=== PATIENT | female | born 1985 | race Caucasian/White ===

== ENCOUNTER 2017-11-09 09:07 | Emergency (ER) | payer MEDICAID, SELFPAY ==
[2017-11-09 09:10] VITALS: BP 112/59; PULSE 75; RESP 18; TEMP 36.7; O2SAT 98
--- NOTE | 2017-11-09 09:26 | W.ED.GENAD ---
Discharge Plan Discharge Details Chief Complaint: RespSymp Primary Care Provider: NONE,NONE ED Provider: Eitan Ge Home Meds and New Rx's Prescriptions: No Action levonorgestrel [Mirena] 1 EACH intrauterine device 1 ea Intrauterine ONCE Qty: 1 RF: 0 fluoxetine [Prozac] 20 MG capsule 20 mg PO DAILY Qty: 30 RF: 0 Medical Decision Making MDM Narrative Medical decision making narrative: 33-year-old female smoker with cough, congestion, production of sputum. She is well-appearing, with normal oxygenation and respiratory effort. She does have few scattered rhonchi and wheeze on exam. Taught the use of albuterol inhaler in the emergency department. I will prescribe her a course of antibiotics for developing bronchitis. She has already initated plans to establish care with [facility] internal medicine and she will follow-up with them. HPI - General Adult General Mode of arrival: ambulatory. Date/Time Provider Initiated Documentation: 11/09/17 09:20. Limitations to Documentation: no limitations. Information obtained by: patient. History of Present Illness 32 year old F presents to the emergency department with the chief complaint of Cough, described as moderate, Quality is described as constant, and is localized to the chest. Patient reports no radiation. Patient started experiencing this day(s) and it has been constant. No relieving factors improve symptom(s), No exacerbating factors reported . Patient notes cough and fever/chills. Patient did receive the following treatments prior to arrival, none HPI Narrative: 32-year-old female smoker presents with days to 1 week of the gradual onset of cough, congestion, production of sputum with sinus pain and pressure. She has had chills but no fever. Tolerate liquids and solids by mouth. No other constitutional symptoms. No known sick contacts. Related Data Home Medications Medication Instructions Recorded Confirmed levonorgestrel [Mirena] 1 ea INTRAUTERINE ONCE #1 implant 06/14/17 11/09/17 Previous Rx's Medication Instructions Recorded fluoxetine [Prozac] 20 mg PO DAILY #30 tab 08/31/17 Allergies Allergy/AdvReac Type Severity Reaction Status Date / Time adhesive Allergy Mild Red, itchy Unverified 11/09/17 09:18 skin General Stated Complaint: RespSymp MIKAYLA: 3 Review of Systems Review of Systems 8 systems reviewed and otherwise negative All systems reviewed & are unremarkable except as noted in HPI and below PFSH Family History Grandmother No problems noted. Maternal Aunt No problems noted. Medical History Abnormal Pap smear of cervix Chlamydia trachomatis infection (02/09/05) Pelvic pain Social History Smoking/Tobacco Use Status: Current every day Surgical History Cervical Conization/LEEP Laparoscopic, Ovarian Cystectomy (~06/2017) Exam Narrative Exam Narrative: GEN: awake, alert, oriented 3. Pleasant, well groomed, interactive. HEAD: Normocephalic, atraumatic ENT: Mucous membranes moist, oropharynx unremarkable, External ear exam unremarkable EYES: PERRL, EOMI NECK: Full ROM, no GIULIANA, no menigismus CHEST/RESP: Nontender, clear to auscultation bilateral, few scattered rhonchi/wheeze - subtle CARDIOVASCULAR: RRR, no murmur, rub maikel. 2+ Rad pulse bilateral ABDOMEN: Soft, nontender, no mass. +Bowel sounds EXT: Full ROM, no edema, no rash Neuro: Grossly normal neurologic exam, conversant, interactive. Psych: Speech fluent, thoughts congruent, affect normal Course Vital Signs Temperature 36.7 C 11/09/17 09:10 Pulse 75 11/09/17 09:10 Respiratory Rate 11/09/17 09:10 Blood Pressure 112/59 L 11/09/17 09:10 Pulse Oximetry 98 11/09/17 09:10 Temperature 36.7 C 11/09/17 09:10 Pulse 75 11/09/17 09:10 Respiratory Rate 11/09/17 09:10 Blood Pressure 112/59 L 11/09/17 09:10 Pulse Oximetry 98 11/09/17 09:10
--- NOTE | 2017-11-09 09:29 | ED.GENADUL_ITS ---
Discharge Plan Discharge Details Chief Complaint: RespSymp Primary Care Provider: NONE,NONE ED Provider: Eitan Ge Home Meds and New Rx's Prescriptions: No Action levonorgestrel [Mirena] 1 EACH intrauterine device 1 ea Intrauterine ONCE Qty: 1 RF: 0 fluoxetine [Prozac] 20 MG capsule 20 mg PO DAILY Qty: 30 RF: 0 Medical Decision Making MDM Narrative Medical decision making narrative: 33-year-old female smoker with cough, congestion, production of sputum. She is well-appearing, with normal oxygenation and respiratory effort. She does have few scattered rhonchi and wheeze on exam. Taught the use of albuterol inhaler in the emergency department. I will prescribe her a course of antibiotics for developing bronchitis. She has already initated plans to establish care with [facility] internal medicine and she will follow-up with them. HPI - General Adult General Mode of arrival: ambulatory . Date/Time Provider Initiated Documentation: 11/09/17 09:20 . Limitations to Documentation: no limitations . Information obtained by: patient . History of Present Illness 32 year old F presents to the emergency department with the chief complaint of Cough, described as moderate, Quality is described as constant, and is localized to the chest. Patient reports no radiation. Patient started experiencing this day(s) and it has been constant. No relieving factors improve symptom(s), No exacerbating factors reported . Patient notes cough and fever/chills. Patient did receive the following treatments prior to arrival, none HPI Narrative: 32-year-old female smoker presents with days to 1 week of the gradual onset of cough, congestion, production of sputum with sinus pain and pressure. She has had chills but no fever. Tolerate liquids and solids by mouth. No other constitutional symptoms. No known sick contacts. Related Data Home Medications Medication Instructions Recorded Confirmed levonorgestrel [Mirena] 1 ea INTRAUTERINE ONCE #1 implant 06/14/17 11/09/17 Previous Rx's Medication Instructions Recorded fluoxetine [Prozac] 20 mg PO DAILY #30 tab 08/31/17 Allergies Allergy/AdvReac Type Severity Reaction Status Date / Time adhesive Allergy Mild Red, itchy Unverified 11/09/17 09:18 skin General Stated Complaint: RespSymp MIKAYLA: 3 Review of Systems Review of Systems 8 systems reviewed and otherwise negative All systems reviewed & are unremarkable except as noted in HPI and below PFSH Family History Grandmother No problems noted. Maternal Aunt No problems noted. Medical History Abnormal Pap smear of cervix Chlamydia trachomatis infection (02/09/05) Pelvic pain Social History Smoking/Tobacco Use Status: Current every day Surgical History Cervical Conization/LEEP Laparoscopic, Ovarian Cystectomy (~06/2017) Exam Narrative Exam Narrative: GEN: awake, alert, oriented 3. Pleasant, well groomed, interactive. HEAD: Normocephalic, atraumatic ENT: Mucous membranes moist, oropharynx unremarkable, External ear exam unremarkable EYES: PERRL, EOMI NECK: Full ROM, no GIULIANA, no menigismus CHEST/RESP: Nontender, clear to auscultation bilateral, few scattered rhonchi/ wheeze - subtle CARDIOVASCULAR: RRR, no murmur, rub maikel. 2+ Rad pulse bilateral ABDOMEN: Soft, nontender, no mass. +Bowel sounds EXT: Full ROM, no edema, no rash Neuro: Grossly normal neurologic exam, conversant, interactive. Psych: Speech fluent, thoughts congruent, affect normal Course Vital Signs Temperature 36.7 C 11/09/17 09:10 Pulse 75 11/09/17 09:10 Respiratory Rate 11/09/17 09:10 Blood Pressure 112/59 L 11/09/17 09:10 Pulse Oximetry 98 11/09/17 09:10 Temperature 36.7 C 11/09/17 09:10 Pulse 75 11/09/17 09:10 Respiratory Rate 11/09/17 09:10 Blood Pressure 112/59 L 11/09/17 09:10 Pulse Oximetry 98 11/09/17 09:10
[2017-11-09] MEDS: Inhaler, Assist Device 1 EACH MC (09:36)
[2017-11-09] MEDS: Albuterol HFA 8 GM 60 PUFF INH IH (09:36)
--- NOTE | 2017-11-12 09:51 | CMPROGNOTE_ITS ---
Care Management Progress Note 11/12/17-Pt seen for resp. symptoms on 11/09/[address] Arturo Ge . Referral faxed to establish PCP sent to [facility] as Chris Faye was network operations lead.
== END 2017-11-09 09:40 | disposition home or self-care (01) ==
LOC: ER 10:24
PROVIDERS: Emergency Provider Emergency Medicine
DX: J06.9 Acute upper respiratory infection, unspecified (principal); F17.210 Nicotine dependence, cigarettes, uncomplicated
CPT/HCPCS: 99283

== ENCOUNTER 2017-12-18 18:52 | Emergency (ER) | payer MEDICAID, SELFPAY ==
[2017-12-18 19:02] VITALS: BP 117/66; PULSE 73; RESP 22; TEMP 36.7; O2SAT 98
--- NOTE | 2017-12-18 19:31 | DI.RAD_ITS ---
SYMPTOMS/DIAGNOSIS: COUGH PA AND LATERAL CHEST: Comparison is made with October,. The cardiac and mediastinal contours have a normal appearance. The lungs are well inflated and clear. No infiltrate, effusion or pneumothorax is seen. IMPRESSION: Negative chest x-ray.
--- NOTE | 2017-12-18 19:49 | W.ED.GENAD ---
Discharge Plan Disposition Patient Disposition: HOME Condition: Improving Discharge Details Chief Complaint: RespSymp Clinical Impression: Bronchitis Primary Care Provider: NONE,NONE ED Provider: Cain Costello Home Meds and New Rx's Prescriptions: New benzonatate 200 mg capsule 200 mg PO TID PRN (Reason: cough) Qty: 30 RF: 0 prednisone 20 mg tablet 40 mg PO DAILY Qty: 8 RF: 0 No Action levonorgestrel [Mirena] 1 EACH intrauterine device 1 ea Intrauterine ONCE Qty: 1 RF: 0 fluoxetine [Prozac] 20 MG capsule 20 mg PO DAILY Qty: 30 RF: 0 Discharge Instructions Instructions: Acute Bronchitis (ED) Additional Instructions: Feel free to return to the emergency department for new or significant worsening of symptoms otherwise follow-up with primary care doctor in the next 1-2 weeks for reassessment Referrals: Primary Care Provider [Outside] (Care management should help arrange a follow-up visit in 1 week for reassessment and establishment of primary care provider) Discharge Data Discharge Date/Time-TO BE ENTERED AT DEPARTURE: 12/18/17 22:51 Medical Decision Making Patient presents the emergency department chief complaint of cough. Patient states that cough has been persistent for the last month and she was seen a month ago and placed upon doxycycline for her cough that never improved. Physical exam does show some mild right lower lobe rhonchi otherwise no specific other physical exam findings are noted. Concern for recurrence of pneumonia versus bronchitis so plan to perform radiological imaging the chest. Pending results patient given DuoNeb. Review of radiological imaging shows no acute findings. Patient reassessed after DuoNeb and lungs are clear especially with coughing. I suspect given duration of symptoms and the patient is a smoker that she has bronchitis. Given the patient is afebrile with unremarkable vital signs and continued cough with negative chest x-ray I do not feel that patient needs antibiotics also given that patient was recently on doxycycline and no benefit. I suspect more viral or inflammatory etiology and patient agreed to Danilo Archer for cough suppressant and prednisone burst. Patient was encouraged to return for any new or significant worsening of symptoms otherwise to follow-up with her primary care provider if continuing to not improve over the next 5 days HPI General Mode of arrival: ambulatory. Date/Time Provider Initiated Documentation: 12/18/17 19:31. Limitations to Documentation: no limitations. Information obtained by: patient, RN notes reviewed and old records reviewed. History of Present Illness 32 year old F presents to the emergency department with the chief complaint of Cough/chest pain , described as moderate, with intensity rated at 5. Quality is described as aching, and is localized to the chest and right. Patient started experiencing this month(s) (1) and it has been constant. No relieving factors improve symptom(s), Other factors that worsen symptoms (coughinh) . Related Data Home Medications Medication Instructions Recorded Confirmed levonorgestrel [Mirena] 1 ea INTRAUTERINE ONCE #1 implant 06/14/17 12/18/17 fluoxetine [Prozac] 20 mg PO DAILY #30 tab 08/31/17 12/18/17 benzonatate 200 mg PO TID PRN #30 cap 12/18/17 prednisone 40 mg PO DAILY #8 tab 12/18/17 Previous Rx's Medication Instructions Recorded fluoxetine [Prozac] 20 mg PO DAILY #30 tab 08/31/17 benzonatate 200 mg PO TID PRN #30 cap 12/18/17 prednisone 40 mg PO DAILY #8 tab 12/18/17 Allergies Allergy/AdvReac Type Severity Reaction Status Date / Time adhesive Allergy Mild Red, itchy Unverified 12/18/17 19:06 skin General Stated Complaint: RespSymp MIKAYLA: 4 Review of Systems Constitutional Denies chills, Reports difficulty sleeping (Due to coughing), Reports fatigue, Denies fever(s) and Reports malaise ENT Denies hoarseness, Reports nasal congestion, Denies sinus pressure and Denies sore throat Cardiovascular Denies syncope, Denies rapid heart rate, Denies irregular heart rhythm and Denies dyspnea Respiratory Reports cough, Denies hemoptysis, Denies excessive phlegm production, Reports pain with cough, Denies dyspnea and Denies wheezing Musculoskeletal Denies joint swelling Integumentary/Breasts Denies rash Neurologic Denies syncope Endocrine Reports fatigue Allergic/Immunologic Denies wheezing PFSH Family History Grandmother No problems noted. Maternal Aunt No problems noted. Medical History Abnormal Pap smear of cervix Chlamydia trachomatis infection (02/09/05) Pelvic pain Social History Smoking/Tobacco Use Status: Current every day Surgical History Cervical Conization/LEEP Laparoscopic, Ovarian Cystectomy (~06/2017) Exam Const General: cooperative, comfortable and no acute distress Orientation: alert, awake and oriented x3 Neck Neck: normal visual inspection, full ROM, no lymphadenopathy, meningismus present and no JVD Resp Effort & Inspection: normal respiratory effort, able to speak in complete sentences, no audible wheezes, cough Quality of cough: actively coughing and not labored Auscultation: rhonchi right lower Cardio Rate: regular rate Rhythm: regular rhythm Heart Sounds: S1 normal and S2 normal Skin General skin exam: no rashes or lesions noted and dry skin Rashes: no rashes Neuro General: alert, awake, oriented x3 and gait normal Course Vital Signs Temperature 36.7 C 12/18/17 19:02 Pulse 73 12/18/17 19:02 Respiratory Rate 22 12/18/17 19:02 Blood Pressure 117/66 12/18/17 19:02 Pulse Oximetry 98 12/18/17 19:02 Temperature 36.7 C 12/18/17 19:02 Temperature Source Skin 12/18/17 19:02 Pulse 73 12/18/17 19:02 Respiratory Rate 22 12/18/17 19:02 Respiratory Effort 12/18/17 19:14 Blood Pressure 117/66 12/18/17 19:02 Blood Pressure Position Sitting 12/18/17 19:02 Pulse Oximetry 98 12/18/17 19:02 Oxygen Delivery Method Room Air 12/18/17 19:02 Oxygen Flow Rate 0 12/18/17 19:02 Pain Level 5 12/18/17 19:02 Lab/Test Results Lab/Test Results: POC- Test(urine) Negative
[2017-12-18] MEDS: Albuterol/Ipratropium 3 ML UPD VIAL UPD (19:55)
--- NOTE | 2017-12-18 21:44 | DI.VRAD_ITS ---
EXAM: XR Chest, 2 Views EXAM DATE/TIME: 12/18/2017 7:32 PM CLINICAL HISTORY: 32 years old, female; Signs and symptoms; Other: Cough TECHNIQUE: XR of the chest, 2 views. COMPARISON: CR CHEST 2 VIEWS PA,LAT 11/22/2015 9:17 AM FINDINGS: Lungs: Clear lungs. Pleural space: No pneumothorax. No sizable pleural effusion. Heart/Mediastinum: No cardiomegaly. Bones/joints: Unremarkable. IMPRESSION: Clear lungs. Dictated and Authenticated by: Mushtaq Martinez MD. Ordering:THERESE TRIVEDI MD
[2017-12-18] MEDS: Benzonatate 100 MG CAP 400 MG PO (22:35)
[2017-12-18] MEDS: Albuterol HFA 8 GM 60 PUFF INH IH (22:35)
[2017-12-18] MEDS: predniSONE 20 MG TAB 60 MG PO (22:35)
--- NOTE | 2017-12-18 22:43 | ED.GENADUL_ITS ---
Discharge Plan Disposition Patient Disposition: HOME Condition: Improving Discharge Details Chief Complaint: RespSymp Clinical Impression: Bronchitis Primary Care Provider: NONE,NONE ED Provider: Cain Costello Home Meds and New Rx's Prescriptions: New benzonatate 200 mg capsule 200 mg PO TID PRN (Reason: cough) Qty: 30 RF: 0 prednisone 20 mg tablet 40 mg PO DAILY Qty: 8 RF: 0 No Action levonorgestrel [Mirena] 1 EACH intrauterine device 1 ea Intrauterine ONCE Qty: 1 RF: 0 fluoxetine [Prozac] 20 MG capsule 20 mg PO DAILY Qty: 30 RF: 0 Discharge Instructions Instructions: Acute Bronchitis (ED) Additional Instructions: Feel free to return to the emergency department for new or significant worsening of symptoms otherwise follow-up with primary care doctor in the next 1 -2 weeks for reassessment Referrals: Primary Care Provider [Outside] (Care management should help arrange a follow- up visit in 1 week for reassessment and establishment of primary care provider) Discharge Data Discharge Date/Time-TO BE ENTERED AT DEPARTURE: 12/18/17 22:51 Medical Decision Making Patient presents the emergency department chief complaint of cough. Patient states that cough has been persistent for the last month and she was seen a month ago and placed upon doxycycline for her cough that never improved. Physical exam does show some mild right lower lobe rhonchi otherwise no specific other physical exam findings are noted. Concern for recurrence of pneumonia versus bronchitis so plan to perform radiological imaging the chest. Pending results patient given DuoNeb. Review of radiological imaging shows no acute findings. Patient reassessed after DuoNeb and lungs are clear especially with coughing. I suspect given duration of symptoms and the patient is a smoker that she has bronchitis. Given the patient is afebrile with unremarkable vital signs and continued cough with negative chest x-ray I do not feel that patient needs antibiotics also given that patient was recently on doxycycline and no benefit. I suspect more viral or inflammatory etiology and patient agreed to Danilo Archer for cough suppressant and prednisone burst. Patient was encouraged to return for any new or significant worsening of symptoms otherwise to follow-up with her primary care provider if continuing to not improve over the next 5 days HPI General Mode of arrival: ambulatory . Date/Time Provider Initiated Documentation: 12/18/17 19:31 . Limitations to Documentation: no limitations . Information obtained by: patient, RN notes reviewed and old records reviewed . History of Present Illness 32 year old F presents to the emergency department with the chief complaint of Cough/chest pain , described as moderate, with intensity rated at 5. Quality is described as aching, and is localized to the chest and right. Patient started experiencing this month(s) (1) and it has been constant. No relieving factors improve symptom(s), Other factors that worsen symptoms ( coughinh) . Related Data Home Medications Medication Instructions Recorded Confirmed levonorgestrel [Mirena] 1 ea INTRAUTERINE ONCE #1 implant 06/14/17 12/18/17 fluoxetine [Prozac] 20 mg PO DAILY #30 tab 08/31/17 12/18/17 benzonatate 200 mg PO TID PRN #30 cap 12/18/17 prednisone 40 mg PO DAILY #8 tab 12/18/17 Previous Rx's Medication Instructions Recorded fluoxetine [Prozac] 20 mg PO DAILY #30 tab 08/31/17 benzonatate 200 mg PO TID PRN #30 cap 12/18/17 prednisone 40 mg PO DAILY #8 tab 12/18/17 Allergies Allergy/AdvReac Type Severity Reaction Status Date / Time adhesive Allergy Mild Red, itchy Unverified 12/18/17 19:06 skin General Stated Complaint: RespSymp MIKAYLA: 4 Review of Systems Constitutional Denies chills, Reports difficulty sleeping (Due to coughing), Reports fatigue, Denies fever(s) and Reports malaise ENT Denies hoarseness, Reports nasal congestion, Denies sinus pressure and Denies sore throat Cardiovascular Denies syncope, Denies rapid heart rate, Denies irregular heart rhythm and Denies dyspnea Respiratory Reports cough, Denies hemoptysis, Denies excessive phlegm production, Reports pain with cough, Denies dyspnea and Denies wheezing Musculoskeletal Denies joint swelling Integumentary/Breasts Denies rash Neurologic Denies syncope Endocrine Reports fatigue Allergic/Immunologic Denies wheezing PFSH Family History Grandmother No problems noted. Maternal Aunt No problems noted. Medical History Abnormal Pap smear of cervix Chlamydia trachomatis infection (02/09/05) Pelvic pain Social History Smoking/Tobacco Use Status: Current every day Surgical History Cervical Conization/LEEP Laparoscopic, Ovarian Cystectomy (~06/2017) Exam Const General: cooperative, comfortable and no acute distress Orientation: alert, awake and oriented x3 Neck Neck: normal visual inspection, full ROM, no lymphadenopathy, meningismus present and no JVD Resp Effort & Inspection: normal respiratory effort, able to speak in complete sentences, no audible wheezes, cough Quality of cough: actively coughing and not labored Auscultation: rhonchi right lower Cardio Rate: regular rate Rhythm: regular rhythm Heart Sounds: S1 normal and S2 normal Skin General skin exam: no rashes or lesions noted and dry skin Rashes: no rashes Neuro General: alert, awake, oriented x3 and gait normal Course Vital Signs Temperature 36.7 C 12/18/17 19:02 Pulse 73 12/18/17 19:02 Respiratory Rate 22 12/18/17 19:02 Blood Pressure 117/66 12/18/17 19:02 Pulse Oximetry 98 12/18/17 19:02 Temperature 36.7 C 12/18/17 19:02 Temperature Source Skin 12/18/17 19:02 Pulse 73 12/18/17 19:02 Respiratory Rate 22 12/18/17 19:02 Respiratory Effort 12/18/17 19:14 Blood Pressure 117/66 12/18/17 19:02 Blood Pressure Position Sitting 12/18/17 19:02 Pulse Oximetry 98 12/18/17 19:02 Oxygen Delivery Method Room Air 12/18/17 19:02 Oxygen Flow Rate 0 12/18/17 19:02 Pain Level 5 12/18/17 19:02 Lab/Test Results Lab/Test Results: POC- Test(urine) Negative
--- NOTE | 2017-12-19 07:30 | PDOC.ERCMPRO ---
Care Management Progress Note 12/18-LOUANN López requested assistance with a PCP (Patient does not have a PCP, Karlene Faye educational consultant) in one week for bronchitis on steroids. Referral faxed to [facility] this am.
--- NOTE | 2017-12-19 07:32 | CMPROGNOTE_ITS ---
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 Referral faxed to [facility] this am.
== END 2017-12-18 22:51 | disposition home or self-care (01) ==
PROVIDERS: Emergency Provider Nurse Practitioner Family
DX: J20.9 Acute bronchitis, unspecified (principal); F17.210 Nicotine dependence, cigarettes, uncomplicated
CPT/HCPCS: 81025; 94640; 99283; 71046; J7512; J7620

== ENCOUNTER 2018-02-28 02:49 | Outpatient (CLI) | payer MEDICAID, SELFPAY ==
--- NOTE | 2018-02-28 | PFT_ITS ---
PULMONARY FUNCTION TEST REPORT DATE OF DICTATION March 04, 2018 Patient identification - Belia Rubio DATE OF - 1985 DATE OF SERVICE - February 28, 2018 REQUESTING PROVIDER - Beckie Elkins N.P. INTERPRETATION OF STUDY Spirometry shows borderline mild obstructive airways disease, with no significant bronchodilator response. This may represent a normal variant. LUNG VOLUMES - Lung volumes no evidence of restriction. DIFFUSION CAPACITY- Normal. AIRWAY RESISTANCE - Normal. IMPRESSION Borderline mild obstructive airways disease, with no bronchodilator response. This may represent a normal variant. If underlying asthma diagnosis is in question, proceeding with methacholine challenge testing may prove to be useful, therefore clinical correlation recommended. Pepper Ruiz M.D. HANNAH/lucrecia T - 03/04/2018
[2018-02-28] MEDS: Inhaler, Assist Device 1 EACH MC (13:53)
[2018-02-28] MEDS: Albuterol HFA 18 GM 200 PUFF INH IH (13:54)
== END 2018-02-28 03:09 ==
PROVIDERS: PCP Nurse Practitioner; Visit Provider Nurse Practitioner
DX: R05 Cough (principal)
CPT/HCPCS: 94060; 94150; 94726; 94729

== ENCOUNTER 2018-04-03 14:03 | Outpatient (CLI) | payer MEDICAID, SELFPAY ==
--- NOTE | 2018-04-03 15:47 | DI.RAD_ITS ---
SYMPTOMS/DIAGNOSIS: COUGH, R05, ACID REFLUX, K21.9 PA AND LATERAL CHEST: The cardiac and mediastinal contours have a normal appearance. The lungs are well inflated and clear. No infiltrate, effusion or pneumothorax is seen. IMPRESSION: Negative chest x-ray.
== END 2018-04-03 14:23 ==
PROVIDERS: PCP Nurse Practitioner; Visit Provider Nurse Practitioner
DX: R05 Cough (principal); K21.9 Gastro-esophageal reflux disease without esophagitis
CPT/HCPCS: 71046

== ENCOUNTER 2018-04-09 14:30 | Outpatient (CLI) | payer MEDICAID, SELFPAY ==
[2018-04-09 17:05] LABS: Abs Immature Grans 0.01 k/cumm (0.0-0.09); Absolute Basophil Count 0.02 k/cumm (0.0-0.2); Absolute Lymphocyte Count 2.08 k/cumm (1.2-3.4); Absolute Monocyte Count 0.33 k/cumm (0.11-0.7); Absolute Neutrophil Count 3.77 k/cumm (1.2-6.7); Basophils % 0.3; Eosinophils % 1.6; HCT 37.6 % (36.0-46.0); HGB 12.9 g/dL (12.0-15.5); Immature Grans % 0.2; Mean Corp. HGB Concentration 34.3 g/dL (32.0-36.0); Mean Corpuscular Hemoglobin 33.5 pg (27.0-33.0); Mean Corpuscular Volume 97.7 fL (80-95); Mean Platelet Volume 11.5 fL (8.0-11.0); Monocytes % 5.2; Neutrophils % 59.7; Platelet Count 127 x1000/uL (130-400); RBC 3.85 m/cumm (4.00-5.20); RBC Distribution Width 12.8 % (11.7-14.6); White Blood Cell Count 6.31 k/cumm (4.4-10.8)
[2018-04-09 18:48] LABS: Iron 77 ug/dL (50-175); Total Iron Binding Capacity 248 ug/dL (250-450); Transferrin Sat 31 % (15-50)
[2018-04-09 19:03] LABS: Ferritin 78 ng/mL (8-388); Glucose 95 mg/dL (70-100); TSH (W/Ref FT4) 1.87 uIU/mL (0.358-3.74)
== END 2018-04-09 14:50 ==
PROVIDERS: PCP Nurse Practitioner; Visit Provider Nurse Practitioner
DX: F41.8 Other specified anxiety disorders (principal); Z86.2 Personal history of diseases of the blood and blood-forming organs and certain disorders involving the immune mechanism; Z00.00 Encounter for general adult medical examination without abnormal findings
CPT/HCPCS: 36415; 82947; 82728; 83540; 83550; 84443; 85025

== ENCOUNTER 2018-04-26 12:21 | Outpatient (REF) | payer MEDICAID, SELFPAY ==
[2018-04-26 13:49] LABS: HCT 38.5 % (36.0-46.0); Mean Corp. HGB Concentration 33.8 g/dL (32.0-36.0); Mean Corpuscular Hemoglobin 33.1 pg (27.0-33.0); Mean Platelet Volume 11.9 fL (8.0-11.0); Platelet Count 115 x1000/uL (130-400); RBC 3.93 m/cumm (4.00-5.20); RBC Distribution Width 12.8 % (11.7-14.6); White Blood Cell Count 5.94 k/cumm (4.4-10.8)
== END 2018-04-26 12:41 ==
LOC: NCHCN 12:21
PROVIDERS: PCP Nurse Practitioner; Visit Provider Nurse Practitioner
DX: D72.819 Decreased white blood cell count, unspecified (principal)
CPT/HCPCS: 85027

== ENCOUNTER 2018-05-06 13:37 | Outpatient (REF) | payer MEDICAID, SELFPAY ==
[2018-05-06 21:30] LABS: Platelet Count 127 x1000/uL (130-400)
[2018-05-06 21:53] LABS: ALT 23 U/L (12-78); AST 18 U/L (15-37); Albumin 4.1 g/dL (3.4-5.0); Alkaline Phosphatase 67 U/L (46-116); Bilirubin, Direct 0.08 mg/dL (0.00-0.20); Bilirubin, Total 0.3 mg/dL (0.2-1.0)
[2018-05-08 10:01] LABS: HIV-1/2 Ag & Ab Screen Negative (NEGAT)
[2018-05-08 10:12] LABS: Hepatitis C Ab w Rflx HCV PCR Negative (NEGAT)
== END 2018-05-06 13:57 ==
LOC: NCHCN 13:37
PROVIDERS: PCP Nurse Practitioner; Visit Provider Nurse Practitioner
DX: R79.1 Abnormal coagulation profile (principal); Z11.59 Encounter for screening for other viral diseases; Z11.4 Encounter for screening for human immunodeficiency virus [HIV]
CPT/HCPCS: 80076; 86803; 87389; 85049

== ENCOUNTER 2018-06-10 00:48 | Outpatient (CLI) | payer MEDICAID, SELFPAY ==
--- NOTE | 2018-06-10 11:11 | DI.US_ITS ---
SYMPTOM/DIAGNOSIS: ASSESS SPLEEN AND LIVER, THROMBOCYTOPENIA, D69.6 ABDOMEN ULTRASOUND: The visualized liver, parenchyma is normal in appearance. No evidence of biliary dilatation. There is normodirectional portal flow. There is no evidence of cholelithiasis. Pancreas appears intact as visualized. Spleen is normal in size and echogenicity. Kidneys are unremarkable in appearance. Aorta and IVC are of normal diameter. CONCLUSION: Negative abdominal ultrasound.
== END 2018-06-10 01:08 ==
PROVIDERS: PCP Nurse Practitioner; Visit Provider Internal Medicine Hematology & Oncology
DX: D69.6 Thrombocytopenia, unspecified (principal)
CPT/HCPCS: 76700

== ENCOUNTER 2018-07-20 10:12 | Emergency (ER) | payer MEDICAID, SELFPAY ==
[2018-07-20 10:15] VITALS: BP 133/91; PULSE 72; RESP 16; TEMP 36.4; O2SAT 100
[2018-07-20] MEDS: Bupivacaine 0.5% Pres-Free 30 ML VIAL (10:28)
--- NOTE | 2018-07-20 10:29 | ED.GENADUL_ITS ---
Discharge Plan Disposition Patient Disposition: HOME Condition: Good Discharge Details Chief Complaint: DentalOral Clinical Impression: Pain, dental, TMJ (temporomandibular joint syndrome) Primary Care Provider: Beckie Elkins ED Provider: Chava Albarran Home Meds and New Rx's Prescriptions: New amoxicillin 500 mg capsule 500 mg PO QID 7 Days Qty: 28 RF: 0 No Action Mirena 1 EACH intrauterine device 1 ea Intrauterine ONCE Qty: 1 RF: 0 fluoxetine [Prozac] 20 MG capsule 20 mg PO DAILY Qty: 30 RF: 0 omeprazole 20 mg Capsule,Delayed Release(Dr/Ec) 20 mg PO DAILY RF: 0 Discharge Instructions Instructions: Temporomandibular Disorder (ED), Toothache (ED) Additional Instructions: It appears that you have a combination of a mild dental infection in conjunction with temporomandibular joint pain. Please take the amoxicillin antibiotic as directed. Please take 1000 mg of Tylenol every 6 hours as a maximum dose and 800 mg of ibuprofen every 6 hours as the maximum dose. Please perform the stretches that we discussed. Please apply ice to her right jaw as often as possible. Please follow-up with your dentist as soon as possible for reassessment. If you notice any worsening of your symptoms, or any new symptoms such as vomiting, diarrhea, fever, chills, shortness of breath, chest pain, numbness, weakness, or fainting , please return immediately to the emergency department for reevaluation. Please follow up with your primary care provider as soon as possible for reassessment and reevaluation. As always, it was a pleasure participating in your medical care today. Referrals: Beckie Elkins [Primary Care Provider] - Medical Decision Making This is a pleasant 33-year-old female with no significant past medical history who presents today for evaluation of right dental pain for the last 3 weeks that has gradually been worsening. No red flags of fever or chills. Exam demonstrates mild dental caries throughout. No clinical evidence of meningitis, temporal arteritis, periapical abscess, or neck or throat abscess. Posterior oropharynx is nonerythematous and otherwise benign. Signs and symptoms appear consistent with mild pulpitis from dental caries, in conjunction with mild TMJ. We will give first dose of antibiotics here, and recommend close dental follow- up. We have given a block here in the patient has had notable improvement of h er symptoms. I have extensively reviewed the treatment plan and discharge instructions with the patient and their family. I have addressed all patient concerns at this time. The patient and family was made aware of what symptoms to monitor for that would warrant a return to the emergency department. Discussed the plan with the patient and family, they demonstrate verbal understanding and agreement with our assessment and plan at this time. Time out was taken to identify the correct patient, procedure, and site. Risks and benefits were discussed with the patient and consent was obtained. Direct pressure was held over the area prior to the procedure to reduce painful injection. 5 cc?s of Lidocaine 1% and Bupivacaine 0.25% was instilled into the right inferior posterior alveolar region with a 27 gauge needle.Complete analgesia was obtained. The patient tolerated the procedure. There were no complications. HPI General Date/Time Provider Initiated Documentation: 07/20/18 10:12 . HPI Narrative: This is a 32-year-old female with no significant past medical history who presents today for evaluation of right dental pain. Patient states that for the last 3 weeks she has pain that started in her right lower molars, she has known dental caries. Is gradually worsened and now includes the right TMJ. Symptoms are made worse with chewing, palpation. Only minimally improved with NSAIDs. She has not seen a dentist yet. She denies any neck pain or stiffness, fever, chills, headache, chest pain, shortness of breath, arm neck or shoulder pain, chest tightness or chest heaviness. No history of giant cell arteritis, cardiac disease, or other abnormalities. She denies any swelling or discharge. She does smoke, she denies any IV or illicit drug use, or any recent surgical history. Related Data Home Medications Medication Instructions Recorded Confirmed Mirena 1 ea INTRAUTERINE ONCE #1 implant 06/14/17 07/20/18 fluoxetine [Prozac] 20 mg PO DAILY #30 tab 08/31/17 07/20/18 amoxicillin 500 mg PO QID 7 Days #28 cap 07/20/18 omeprazole 20 mg PO DAILY 07/20/18 07/20/18 Previous Rx's Medication Instructions Recorded fluoxetine [Prozac] 20 mg PO DAILY #30 tab 08/31/17 amoxicillin 500 mg PO QID 7 Days #28 cap 07/20/18 Allergies Allergy/AdvReac Type Severity Reaction Status Date / Time adhesive Allergy Mild Red, itchy Unverified 12/18/17 19:06 skin General Stated Complaint: DentalOral MIKAYLA: 4 Review of Systems Review of Systems All systems reviewed & are unremarkable except as noted in HPI and below PFSH Social History Smoking/Tobacco Use Status: Current every day Drug use: Never Do you feel safe in your relationship?: Yes Exam Narrative Exam Narrative: 1.Const: Well-nourished, Well-developed, appearing stated age 2.Eyes: PERRL, no conjunctival injection, and symmetrical lids. 3.ENT: Mild dental caries throughout, no periapical abscess. Atraumatic external nose and ears. Moist MM. Neck: Symmetric, trachea midline, No thyromegaly. No significant cervical lymphadenopathy. Patient demonstrates good movement of cervical neck. There is no nuchal rigidity, no nuchal tenderness. Patient is able to flex the neck without any difficulty or significant pain. Negative Kernig's and Brudzinski sign. No pain or tenderness over the temporal region. Mild with movement of the right TMJ. No crepitus. No significant unilateral deformity 4.CVS: +S1/S2, No murmurs or gallops. Peripheral pulses 2+ and equal in all extremities. Brisk capillary refill in all extremities. 5.RESP: Unlabored respiratory effort. Clear to auscultation bilaterally. No wheezes rales or rhonchi 6.GI: Soft, Nontender/Nondistended, No hepatosplenomegaly. No guarding or rebound. 7.MSK: Normocephalic/Atraumatic, Extremities w/o deformity or ttp No cyanosis or clubbing, Normal movement of all extremities 8.Skin: Warm, Dry. No rashes or lesions. 9.Neuro: knitting machine tender II-XII grossly intact. Sensation grossly intact, no focal neurologic deficits. 10.Psych: (AAO) x3. Appropriate mood and affect Course Vital Signs Temperature 36.4 C L 07/20/18 10:15 Pulse 72 07/20/18 10:15 Respiratory Rate 16 07/20/18 10:15 Blood Pressure 133/91 H 07/20/18 10:15 Pulse Oximetry 100 07/20/18 10:15 Temperature 36.4 C L 07/20/18 10:15 Temperature Source Skin 07/20/18 10:15 Pulse 72 07/20/18 10:15 Respiratory Rate 16 07/20/18 10:15 Respiratory Effort Non-Labored 07/20/18 10:20 Blood Pressure 133/91 H 07/20/18 10:15 Pulse Oximetry 100 07/20/18 10:15 Pain Level 10 07/20/18 10:15
[2018-07-20] MEDS: Amoxicillin 500 MG CAP PO (10:33)
== END 2018-07-20 10:36 | disposition home or self-care (01) ==
PROVIDERS: Emergency Provider Student in an Organized Health Care Education/Training Program; PCP Nurse Practitioner
DX: R68.84 Jaw pain (principal); K04.7 Periapical abscess without sinus; M26.621 Arthralgia of right temporomandibular joint
CPT/HCPCS: 64402; 99283

== ENCOUNTER 2018-11-12 11:23 | Outpatient (REF) | payer MEDICAID, SELFPAY ==
[2018-11-12 21:04] LABS: HCT 37.6 % (36.0-46.0); HGB 12.4 g/dL (12.0-15.5); Mean Corpuscular Hemoglobin 32.6 pg (27.0-33.0); Mean Corpuscular Volume 98.9 fL (80-95); Mean Platelet Volume 11.5 fL (8.0-11.0); Platelet Count 137 x1000/uL (130-400); RBC Distribution Width 12.8 % (11.7-14.6); White Blood Cell Count 5.57 k/cumm (4.4-10.8)
== END 2018-11-12 11:43 ==
LOC: NCHCN 11:23
PROVIDERS: PCP Nurse Practitioner; Visit Provider Nurse Practitioner Family
DX: R79.1 Abnormal coagulation profile (principal)
CPT/HCPCS: 85027

== ENCOUNTER 2018-11-27 09:20 | Emergency (ER) | payer MEDICAID, SELFPAY ==
[2018-11-27 09:23] VITALS: BP 136/55; PULSE 71; RESP 18; TEMP 36.5; O2SAT 98
--- NOTE | 2018-11-27 10:04 | ED.GENADUL_ITS ---
Discharge Plan Disposition Patient Disposition: HOME Condition: Good Discharge Details Chief Complaint: DentalOral Clinical Impression: Pain, dental Primary Care Provider: Ros Monreal ED Provider: Claire Wilder Home Meds and New Rx's Prescriptions: New clindamycin HCl 300 mg capsule 300 mg PO TID Qty: 30 RF: 0 No Action Mirena 1 EACH intrauterine device 1 ea Intrauterine ONCE Qty: 1 RF: 0 fluoxetine [Prozac] 20 MG capsule 20 mg PO DAILY Qty: 30 RF: 0 omeprazole 20 mg Capsule,Delayed Release(Dr/Ec) 20 mg PO DAILY RF: 0 Discharge Instructions Instructions: Toothache (ED) Additional Instructions: Ice packs to the cheek as discussed. Keep head of bed elevated when sleeping. Warm salt water rinses after eating or drinking. Use antibiotic as prescribed. Motrin or Tylenol as discussed for soreness [id number] if needed. Follow with dentist as scheduled. You will receive approximately 6 hours of relief after dental block for pain. Use caution when eating as her jaw and tongue will be partially numb Return to the emergency room for any worsening, concerns, alarming symptoms or increased sign of infection as discussed sooner if needed Discharge Data Discharge Date/Time-TO BE ENTERED AT DEPARTURE: 11/27/18 10:23 Medical Decision Making <Chava Albarran DO - Last Filed: 11/27/18 10:15> Time out was taken to identify the correct patient, procedure, and site. Risks and benefits were discussed with the patient and consent was obtained. Direct pressure was held over the area prior to the procedure to reduce painful inje ction. 7 cc?s of Lidocaine 1% and Bupivacaine 0.5% and a 70-30 mixture was instilled into the right posterior inferior alveolar space with a 27 gauge needle.Complete analgesia was obtained. The patient tolerated the procedure. There were no complications. <MARGARET Giraldo - Last Filed: 11/28/18 17:03> 33-year-old patient with widespread dental caries presents for concern of dental pain. Patient recently had found some improvement after taking course of clindamycin when completed course pain began to return. Patient requesting additional course of clindamycin which I do not feel is unreasonable. Precautions regarding diarrhea and risks of repeating clindamycin were discussed. Patient reports her understanding. Patient is on cancellation list with her dentist. Patient does have focal right lower jawline pain with palpation without evidence of drainable abscess. Patient is requesting a dental block. Dental performed by Dr. Albarran. Patient reports immediate pain relief thereafter. The patient was stable and requested discharge. Prior to discharge, my usual and customary return precautions were reviewed with the patient - this included follow-up instructions and reasons to return to the Emergency Department if conditions worsens, does not improve as expected, or other new concerns arise. HPI <Chava Albarran DO - Last Filed: 11/27/18 10:15> General Date/Time Provider Initiated Documentation: 11/27/18 09:31 . Related Data Home Medications Medication Instructions Recorded Confirmed Mirena 1 ea INTRAUTERINE ONCE #1 implant 06/14/17 11/27/18 fluoxetine [Prozac] 20 mg PO DAILY #30 tab 08/31/17 11/27/18 omeprazole 20 mg PO DAILY 07/20/18 11/27/18 clindamycin HCl 300 mg PO TID #30 cap 11/27/18 Previous Rx's Medication Instructions Recorded fluoxetine [Prozac] 20 mg PO DAILY #30 tab 08/31/17 clindamycin HCl 300 mg PO TID #30 cap 11/27/18 Allergies Allergy/AdvReac Type Severity Reaction Status Date / Time adhesive Allergy Mild Red, itchy Unverified 12/18/17 19:06 skin amoxicillin Allergy Unverified 11/27/18 09:27 <MARGARET Giraldo - Last Filed: 11/28/18 17:03> HPI Narrative: Patient presents for complaints of dental pain to the right lower jawline. Patient reports history of similar dental pain recently. Patient reports she was on a course of penicillin for her dental infection after which she began with a rash. Patient was changed to clindamycin. Patient reports when taking clindamycin she began to feel significantly improved. Finished clindamycin last week and reports in the last few days increasing pain again. Patient feels she requires an additional course of Clinda. Patient does have a follow-up appointment with a dentist in early December and is on the cancellation list trying to be seen sooner. Patient denies facial swelling, fever, chills, trismus or voice change. General Stated Complaint: DentalOral MIKAYLA: 4 <MARGARET Giraldo - Last Filed: 11/28/18 17:03> Review of Systems ROS Unobtainable: All systems reviewed & are unremarkable except as noted in HPI and below Constitutional Constitutional: Denies chills, Denies fever(s) and Denies poor appetite ENT Ears, Nose, Mouth, and Throat: Denies nasal discharge, Denies throat swelling and Denies tongue swelling Allergic/Immunologic Allergic/Immunologic: Denies throat swelling and Denies tongue swelling PFSH <Chava Albarran DO - Last Filed: 11/27/18 10:15> Medical History Abnormal Pap smear of cervix 09/2011 ASCUS-H 08/2012 BX = CIN2. Plan repeat pap after del. Chlamydia trachomatis infection (02/09/05) treated. Neg OLAF. Pelvic pain Surgical History Cervical Conization/LEEP Laparoscopic, Ovarian Cystectomy (~06/2017) bilateral Social History Smoking/Tobacco Use Status: Current every day Alcohol Intake: current Alcohol Intake frequency: holidays/special occasions only Drug use: Never Do you feel safe in your relationship?: Yes <MARGARET Giraldo - Last Filed: 11/28/18 17:03> Narrative Exam Narrative: CONST: Healthy appearing patient, in no acute distress. Well hydrated. Alert and alert. HENMT: Head nomocephalic, normal to inspection. Atraumatic. Hearing grossly normal. Patient with widespread dental caries specifically worst at the posterior molars. Patient's site of pain with palpation at the right lower posterior molar with ER to posterior molars with moderate erosion and wear. Mild erythema at the gumline without focal abscess. EYES: General normal appearance. Alignment normal. Eyelids normal. Conjunctiva normal. NECK: Normal visual inspection. FROM. Trachea midline. No Midline tenderness. MUSCULOSKELETAL: Normal Gait. FROM of all extremities. SKIN: Normal. Dry. No rashes. NEURO: Alert and awake. Speech clear. PSYCH: Normal affect. Cooperative. <MARGARET Giraldo - Last Filed: 11/28/18 17:03> Vital Signs Vital signs: Vital Signs Temperature 36.5 C 11/27/18 09:23 Pulse 71 11/27/18 09:23 Respiratory Rate 18 11/27/18 09:23 Blood Pressure 136/55 L 11/27/18 09:23 Pulse Oximetry 98 11/27/18 09:23 Temperature 36.5 C 11/27/18 09:23 Pulse 71 11/27/18 09:23 Respiratory Rate 18 11/27/18 09:23 Respiratory Effort Non-Labored 11/27/18 09:28 Blood Pressure 136/55 L 11/27/18 09:23 Blood Pressure Position Sitting 11/27/18 09:23 Pulse Oximetry 98 11/27/18 09:23 Oxygen Delivery Method Room Air 11/27/18 09:23 Oxygen Flow Rate 0 11/27/18 09:23 Pain Level 9 11/27/18 09:23
--- NOTE | 2018-11-27 10:18 | W.ED.GENAD ---
Discharge Plan Disposition Patient Disposition: HOME Condition: Good Discharge Details Chief Complaint: DentalOral Clinical Impression: Pain, dental Primary Care Provider: Ros Monreal ED Provider: Claire Wilder Home Meds and New Rx's Prescriptions: New clindamycin HCl 300 mg capsule 300 mg PO TID Qty: 30 RF: 0 No Action Mirena 1 EACH intrauterine device 1 ea Intrauterine ONCE Qty: 1 RF: 0 fluoxetine [Prozac] 20 MG capsule 20 mg PO DAILY Qty: 30 RF: 0 omeprazole 20 mg Capsule,Delayed Release(Dr/Ec) 20 mg PO DAILY RF: 0 Discharge Instructions Instructions: Toothache (ED) Additional Instructions: Ice packs to the cheek as discussed. Keep head of bed elevated when sleeping. Warm salt water rinses after eating or drinking. Use antibiotic as prescribed. Motrin or Tylenol as discussed for soreness [id number] if needed. Follow with dentist as scheduled. You will receive approximately 6 hours of relief after dental block for pain. Use caution when eating as her jaw and tongue will be partially numb Return to the emergency room for any worsening, concerns, alarming symptoms or increased sign of infection as discussed sooner if needed Medical Decision Making 33-year-old patient presents for complaints of dental pain. Patient has been struggling with dental pain and was recently on a course of antibiotics. Course of clindamycin was relieving toward the end of her course of her pain. Patient reports since being off the antibiotic for the last few days now is concerned that she may require additional antibiotic treatment. Patient also requesting dental block as she received one here which was quite helpful temporarily. Patient has tried Motrin or Tylenol without relief. Patient has no facial swelling or obvious fluctuance requiring incision and drainage at this time. Conservative treatments discussed. Risks and benefits of clindamycin discussed. Patient is currently on the waiting list and cancellation list for her dentist. Dental block posterior inferior alveolar block performed by Dr. Albarran with pain relief noted by the patient. The patient was stable and requested discharge. Prior to discharge, my usual and customary return precautions were reviewed with the patient - this included follow-up instructions and reasons to return to the Emergency Department if conditions worsens, does not improve as expected, or other new concerns arise. HPI General Date/Time Provider Initiated Documentation: 11/27/18 09:31. HPI Narrative: 33-year-old patient presents for complaints of dental pain. Patient reports she was recently seen for dental infection and reports widespread dental caries. Patient reports she had allergic reaction to penicillin recently then began clindamycin. Patient reports partway through the clindamycin prescription she began to note improvement. Patient reports after completing course of antibiotics she had increase in pain in the last few days concerned that she requires additional antibiotic treatment. Patient is pending dental appointment in 1 month. Patient is on cancellation list. Patient denies facial swelling. Denies fever, chills, nausea, vomiting. No associated trismus. Has tried Motrin and Tylenol without relief. Worse with eating. Related Data Home Medications Medication Instructions Recorded Confirmed Mirena 1 ea INTRAUTERINE ONCE #1 implant 06/14/17 11/27/18 fluoxetine [Prozac] 20 mg PO DAILY #30 tab 08/31/17 11/27/18 omeprazole 20 mg PO DAILY 07/20/18 11/27/18 clindamycin HCl 300 mg PO TID #30 cap 11/27/18 Previous Rx's Medication Instructions Recorded fluoxetine [Prozac] 20 mg PO DAILY #30 tab 08/31/17 clindamycin HCl 300 mg PO TID #30 cap 11/27/18 Allergies Allergy/AdvReac Type Severity Reaction Status Date / Time adhesive Allergy Mild Red, itchy Unverified 12/18/17 19:06 skin amoxicillin Allergy Unverified 11/27/18 09:27 General Stated Complaint: DentalOral MIKAYLA: 4 Review of Systems Review of Systems ROS Unobtainable: All systems reviewed & are unremarkable except as noted in HPI and below Constitutional Constitutional: Denies chills and Denies fever(s) ENT Ears, Nose, Mouth, and Throat: Denies bleeding gums, Reports dental pain, Denies otalgia, Denies mouth pain, Denies nasal discharge and Denies neck mass [facility] Medical History Abnormal Pap smear of cervix 09/2011 ASCUS-H 08/2012 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 Plan repeat pap after del. Chlamydia trachomatis infection (02/09/05) treated. Neg OLAF. Pelvic pain Social History Smoking/Tobacco Use Status: Current every day Alcohol Intake: current Alcohol Intake frequency: holidays/special occasions only Drug use: Never Do you feel safe in your relationship?: Yes Exam Narrative Exam Narrative: CONST: Healthy appearing patient, in no acute distress. Well hydrated. Alert and alert. HENMT: Head nomocephalic, normal to inspection. Atraumatic. Hearing grossly normal. Right posterior lower molars with pain with palpation. Mild swelling. Widespread caries noted to the posterior molars. No obvious fluctuance or abscess at the gumline. No facial swelling EYES: General normal appearance. Alignment normal. Eyelids normal. Conjunctiva normal. NECK: Normal visual inspection. FROM. Trachea midline. No Midline tenderness. No cervical lymphadenopathy present. SKIN: Normal. Dry. No rashes. NEURO: Alert and awake. Speech clear. PSYCH: Normal affect. Cooperative. Course Vital Signs Vital signs: Vital Signs Temperature 36.5 C 11/27/18 09:23 Pulse 71 11/27/18 09:23 Respiratory Rate 18 11/27/18 09:23 Blood Pressure 136/55 L 11/27/18 09:23 Pulse Oximetry 98 11/27/18 09:23 Temperature 36.5 C 11/27/18 09:23 Pulse 71 11/27/18 09:23 Respiratory Rate 18 11/27/18 09:23 Respiratory Effort Non-Labored 11/27/18 09:28 Blood Pressure 136/55 L 11/27/18 09:23 Blood Pressure Position Sitting 11/27/18 09:23 Pulse Oximetry 98 11/27/18 09:23 Oxygen Delivery Method Room Air 11/27/18 09:23 Oxygen Flow Rate 0 11/27/18 09:23 Pain Level 9 11/27/18 09:23
== END 2018-11-27 10:23 | disposition home or self-care (01) ==
PROVIDERS: Emergency Provider Physician Assistant; PCP Nurse Practitioner Family
DX: K08.9 Disorder of teeth and supporting structures, unspecified (principal); F17.210 Nicotine dependence, cigarettes, uncomplicated
CPT/HCPCS: 99283

== ENCOUNTER 2018-12-04 00:45 | Emergency (ER) | payer MEDICAID, SELFPAY ==
[2018-12-04 00:48] VITALS: BP 141/83; PULSE 84; RESP 18; TEMP 36.5; O2SAT 100
--- NOTE | 2018-12-04 01:12 | ED.GENADUL_ITS ---
Discharge Plan Disposition Patient Disposition: HOME Condition: Good Discharge Details Chief Complaint: DentalOral Clinical Impression: Dental infection Primary Care Provider: Ros Monreal ED Provider: Jw Bautista Meds and [place] Rx's Prescriptions: New amoxicillin-pot clavulanate [Augmentin] 875-125 mg tablet 1 tab PO BID Qty: 14 RF: 0 Continued Mirena 1 EACH intrauterine device 1 ea Intrauterine ONCE Qty: 1 RF: 0 fluoxetine [Prozac] 20 MG capsule 20 mg PO DAILY Qty: 30 RF: 0 omeprazole 20 mg Capsule,Delayed Release(Dr/Ec) 20 mg PO DAILY RF: 0 Discontinued clindamycin HCl 300 mg capsule 300 mg PO TID Qty: 30 RF: 0 Discharge Instructions Additional Instructions: Discontinue the clindamycin and start Augmentin. Continue ibuprofen and acetaminophen for discomfort. Benzocaine topical as directed. Follow-up with oral surgeon next available. Return to ED if you develop fever, facial swelling/redness, worsening pain, difficulty breathing, inability to swallow. Medical Decision Making Patient with continued and worsening dental pain. There is no facial swelling or erythema. There is no gingival abscess for I&D. In discussing her amoxicillin allergy, she reports that she has been able to take it in the past. The last couple of times when she took it, she developed itching involving her hands feet and scalp. It is possible that it is not the antibiotic itself but the filler used for the pill. Clindamycin does not seem to be working. I am going to give her a dose of Augmentin here and watch her for the next hour. Benzocaine 20% topical applied to the area of discomfort. She did obtain pain relief and was more comfortable. Patient with no reaction to the Augmentin. We will plan discharge on same. Giv en the benzocaine topical to use at home. Continue ibuprofen and acetaminophen. Follow-up with oral surgeon as planned. Return to ED for worsening pain, fever, facial swelling, difficulty breathing, inability to swallow. Medical Records Medical records reviewed: Yes I reviewed the patient's medical records. HPI General Mode of arrival: ambulatory . Date/Time Provider Initiated Documentation: 12/04/18 00:57 . Limitations to Documentation: no limitations . Information obtained by: patient, RN notes reviewed and old records reviewed . HPI Narrative: Patient presents to ED with complaint of continued dental pain. She does not have an appointment with an oral surgeon until early next month. She is on the cancellation list to be called in earlier if able. She is on her second round of clindamycin. She continues to have significant pain despite ibuprofen and acetaminophen. There has been no fever. There is no facial swelling. She is just having worsening pain. Related Data Home Medications Medication Instructions Recorded Confirmed Mirena 1 ea INTRAUTERINE ONCE #1 implant 06/14/17 12/04/18 fluoxetine [Prozac] 20 mg PO DAILY #30 tab 08/31/17 12/04/18 omeprazole 20 mg PO DAILY 07/20/18 12/04/18 amoxicillin-pot clavulanate 1 tab PO BID #14 tab 12/04/18 [Augmentin] Previous Rx's Medication Instructions Recorded fluoxetine [Prozac] 20 mg PO DAILY #30 tab 08/31/17 amoxicillin-pot clavulanate 1 tab PO BID #14 tab 12/04/18 [Augmentin] Allergies Allergy/AdvReac Type Severity Reaction Status Date / Time adhesive Allergy Mild Red, itchy Unverified 12/04/18 00:51 skin amoxicillin Allergy Unverified 12/04/18 00:51 General Stated Complaint: DentalOral MIKAYLA: 4 Review of Systems Constitutional Constitutional: Denies chills and Denies fever(s) ENT Ears, Nose, Mouth, and Throat: Reports dental pain, Denies throat swelling and Denies tongue swelling Allergic/Immunologic Allergic/Immunologic: Denies throat swelling and Denies tongue swelling [facility] Medical History Abnormal Pap smear of cervix 09/2011 ASCUS-H 08/2012 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 Plan repeat pap after del. Chlamydia trachomatis infection (02/09/05) treated. Neg OLAF. Pelvic pain Surgical History Cervical Conization/LEEP Laparoscopic, Ovarian Cystectomy (~06/2017) bilateral Social History Smoking/Tobacco Use Status: Current every day Alcohol Intake: current Alcohol Intake frequency: holidays/special occasions only Drug use: Never Do you feel safe at home: Yes Do you feel safe in your relationship?: Yes Exam Narrative Exam Narrative: Vitals: Afebrile. Mildly hypertensive likely from discomfort. Otherwise vitals normal. Const: WDWN female holding right jaw/face and crying. HEENT: NC/AT. Normal facial exam. There is no facial swelling or erythema. She has right posterior molars that are broken off at the gum line. There is no gingival abscess present. No edema. Neck: Supple. Trachea midline. Some anterior cervical adenopathy. Lungs: Normal respiratory effort. Neuro: A+O x 3. CN grossly in tact. Good strength and no focal deficit. Skin: Warm and dry without erythema. Course Vital Signs Vital signs: Vital Signs Temperature 97.7 F 12/04/18 00:48 Pulse 84 12/04/18 00:48 Respiratory Rate 18 12/04/18 00:48 Blood Pressure 141/83 H 12/04/18 00:48 Pulse Oximetry 100 12/04/18 00:48 Temperature 97.7 F 12/04/18 00:48 Temperature Source Skin 10 00:48 Pulse 84 12/04/18 00:48 Respiratory Rate 18 12/04/18 00:48 Respiratory Effort 12/04/18 00:52 Blood Pressure 141/83 H 12/04/18 00:48 Blood Pressure Position Sitting 12/04/18 00:48 Pulse Oximetry 100 12/04/18 00:48 Oxygen Delivery Method Room Air 12/04/18 00:48 Oxygen Flow Rate 0 12/04/18 00:48 Pain Level 10 12/04/18 00:52
[2018-12-04] MEDS: Benzocaine 20% Gel 30 GM JAR MM (01:16)
[2018-12-04] MEDS: Amoxicillin 875/Clav. 125 TAB PO (01:16)
== END 2018-12-04 01:55 | disposition home or self-care (01) ==
PROVIDERS: Emergency Provider Emergency Medicine; PCP Nurse Practitioner Family
DX: K04.7 Periapical abscess without sinus (principal); F17.210 Nicotine dependence, cigarettes, uncomplicated
CPT/HCPCS: 99283

== ENCOUNTER 2019-06-11 08:48 | Outpatient (CLI) | payer MEDICAID, SELFPAY ==
--- NOTE | 2019-06-11 15:25 | DI.CT_ITS ---
EXAM: CT RENAL COLIC WO CLINICAL HISTORY: HEMATURIA, ? KIDNEY STONE. TECHNIQUE: Imaging Protocol: Axial computed tomography images with coronal and sagittal reformatted images were created and reviewed. COMPARISON: No exams were available for comparison FINDINGS: ABDOMEN: Lung Bases: Not included on this examination. Liver: Normal density. No measurable mass. Gallbladder and biliary tract: No radiodense calculus or biliary ductal dilation. Pancreas: Normal density, no abnormal calcifications or inflammatory process. Spleen: Normal. Kidneys: Normal size, contour and axis. Bilateral nephrolithiasis. There is dilatation of the left r enal collecting system with periureteral and perinephric stranding. No ureteral stone is identified. No calcification is seen in the urinary bladder. This may represent a recently passed stone or a r adiolucent stone. No masses seen. Adrenal glands: No masses seen. Lymph nodes: Within normal limits. Abdominal Aorta: Abdominal portion non-dilated. PELVIS: Bladder: Symmetric distention, no gross wall thickening. Mild stranding around the urinary bladder. Bowel: No obstruction or bowel wall thickening. The appendix is normal in size without evidence of ad jacent mesenteric fat stranding or adjacent fluid collection. Peritoneal cavity: No ascites, collection or mesenteric inflammatory response. Reproductive organs: There is an intrauterine device in place. Bones: Within normal limits. Soft Tissues: Small fat containing umbilical hernia. IMPRESSION: 1. Mild dilatation of the left renal collecting system without radiodense stone identified.This may r epresent a recently passed stone or a radiolucent stone. 2. Mild increased attenuation around the urinary bladder which may represent inflammatory or infectio us cystitis. DATA REPOSITORY: All CT scans at this facility are submitted to the National Radiology Data Registry (NRDR) Dose Index Registry (DIR) with the [employer] ([employer]). RADIATION OPTIMIZATION: All CT scans at this facility use at least one of these dose optimization te chniques: automated exposure control; mA and/or kV adjustment per patient size (includes targeted exa ms where dose is matched to clinical indication); or iterative reconstruction.
== END 2019-06-11 09:08 ==
PROVIDERS: PCP Nurse Practitioner Family; Visit Provider Family Medicine
DX: R31.9 Hematuria, unspecified (principal); N20.0 Calculus of kidney; N28.89 Other specified disorders of kidney and ureter; N32.89 Other specified disorders of bladder; Z97.5 Presence of (intrauterine) contraceptive device
CPT/HCPCS: 74176; 81003; 81015; 87086

== ENCOUNTER 2019-06-11 17:07 | Outpatient (REF) | payer MEDICAID, SELFPAY ==
[2019-06-11 17:42] LABS: Clarity Cloudy (Clear); Glucose Negative (Negative); Leukocyte Esterase LARGE (Negative); Nitrite Positive (Negative); pH 8.5 (5-8)
[2019-06-11 17:43] LABS: Bilirubin Moderate (Negative); Blood LARGE (Negative); Ketones TRACE mg/dL (Negative)
[2019-06-11 18:03] LABS: Bacteria Many HPF (Negative); C & S Indicated? C&S Done As Ordered; Casts Negative LPF (Negative); Crystals Negative HPF (Negative); Epithelial Cells Negative HPF (Negative); Mucus Negative (Negative); Other Cells Negative (Negative); RBC >50 HPF (0-2); WBC >50 HPF (0-5)
[2019-06-11 18:49] LABS: BUN 15 mg/dL (7-18); CREATININE 1.14 mg/dL (0.55-1.02); Chloride 106 mmol/L (98-107); Estimated GFR 55.59 (mL/min/1.73m2); Glucose 92 mg/dL (74-106); Potassium 3.8 mmol/L (3.5-5.1); Sodium 142 mmol/L (136-145)
== END 2019-06-11 17:27 ==
LOC: NCHCN 17:07
PROVIDERS: PCP Nurse Practitioner Family; Visit Provider Nurse Practitioner Family
DX: N39.0 Urinary tract infection, site not specified (principal); R31.9 Hematuria, unspecified
CPT/HCPCS: 80048; 87077; 81003; 81015; 87086; 87186

== ENCOUNTER 2020-03-10 15:27 | Outpatient (REF) | payer MEDICAID, SELFPAY ==
[2020-03-10 13:20] LABS: HCT 37.2 % (36.0-46.0); HGB 12.4 g/dL (11.2-15.7); MCH 32.8 pg (27.0-33.0); MCHC 33.3 % (32.0-36.0); MCV 98.4 fL (80-95); MPV 11.5 fL (8.0-11.0); Platelet Count 136 10^3/uL (130-400); RBC 3.78 10^6/uL (3.93-5.22); RDW 12.4 % (11.7-14.6); RDW-SD 44.6 fL; WBC 5.73 10^3/uL (4.4-10.8)
== END 2020-03-10 15:47 ==
LOC: NCHCN 15:27
PROVIDERS: PCP Nurse Practitioner Family; Visit Provider Nurse Practitioner Family
DX: R79.1 Abnormal coagulation profile (principal)
CPT/HCPCS: 85027

== ENCOUNTER 2020-07-28 23:06 | Outpatient (REF) | payer MEDICAID, SELFPAY ==
[2020-07-28 21:09] LABS: Bilirubin Negative (Negative); Blood Negative (Negative); Clarity Clear (Clear); Glucose Negative (Negative); Ketones Negative (Negative); Leukocyte Esterase Negative (Negative); Nitrite Negative (Negative); Specific Gravity >= 1.030 (1.005-1.025); Urobilinogen 0.2 EU/dL (Up TO 0.2)
[2020-07-28 21:22] LABS: Abs Immature Grans 0.02 10^3/uL (0.0-0.06); Absolute Basophil Count 0.03 10^3/uL (0.0-0.2); Absolute Eosinophil Count 0.17 10^3/uL (0.0-0.7); Absolute Lymphocyte Count 2.04 10^3/uL (1.2-3.4); Absolute Monocyte Count 0.43 10^3/uL (0.1-0.8); Absolute Neutrophil Count 5.14 10^3/uL (1.2-6.7); Basophils % 0.4; Eosinophils % 2.2; HCT 38.1 % (36.0-46.0); HGB 12.9 g/dL (11.2-15.7); Immature Grans % 0.3; Lymphocytes % 26.1; MCH 32.7 pg (27.0-33.0); MCHC 33.9 % (32.0-36.0); MCV 96.7 fL (80-95); MPV 12.3 fL (8.0-11.0); Monocytes % 5.5; Neutrophils % 65.5; Nucleated RBC 0 %; RBC 3.94 10^6/uL (3.93-5.22); RDW 12.9 % (11.7-14.6); RDW-SD 46.2 fL; WBC 7.83 10^3/uL (4.4-10.8)
[2020-07-28 21:35] LABS: ALT 33 U/L (14-59); AST 18 U/L (15-37); Alkaline Phosphatase 71 U/L (46-116); Anion Gap 10.3 mmol/L (3-11); BUN 10 mg/dL (7-18); Bilirubin, Total 0.4 mg/dL (0.2-1.0); CO2 25.7 mmol/L (21.0-32.0); Calcium 9.2 mg/dL (8.5-10.1); Chloride 106 mmol/L (98-107); Glucose 85 mg/dL (74-106); Potassium 3.8 mmol/L (3.5-5.1); Sodium 142 mmol/L (136-145); Total Protein 6.8 g/dL (6.4-8.2)
[2020-07-28 22:10] LABS: HCG Qual (Serum) Negative
== END 2020-07-28 23:07 | disposition home or self-care (01) ==
LOC: NCHCN 23:06
PROVIDERS: PCP Nurse Practitioner Family; Visit Provider Family Medicine
DX: R10.9 Unspecified abdominal pain (principal)
CPT/HCPCS: 80053; 81003; 84703; 85025

== ENCOUNTER 2020-07-29 14:53 | Outpatient (CLI) | payer MEDICAID, SELFPAY ==
--- NOTE | 2020-07-29 | DI.CT_ITS ---
Exam(s) CT ABDOMEN PELVIS W EXAM: CT ABDOMEN PELVIS W CLINICAL HISTORY: ACUTE ABD PAIN, R10.9 TECHNIQUE: Imaging Protocol: Axial computed tomography images with coronal and sagittal reformatted images were created and reviewed CONTRAST MATERIAL: Intravenous: Omnipaque 350 Contrast volume:100 mL Oral: No COMPARISON: CT CT RENAL COLIC WO from 06/11/2019 FINDINGS: ABDOMEN: Lung Bases: Normal where visualized. Liver: Normal density. No measurable mass. Portal, Superior Mesenteric, and Splenic Veins: Unremarkable. Gallbladder and Biliary Tract: No radiodense calculus or dilation. Pancreas: Normal density, no abnormal calcifications or inflammatory process. Spleen: Normal. Adrenals: No masses seen. Kidneys: Normal size, contour and axis. No radiodense stones or obstructive uropathy. No masses seen. Abdominal Aorta: Abdominal portion non-dilated. Bowel: No obstruction or bowel wall thickening. Appendix is unremarkable. Peritoneal Cavity: No ascites, collection or mesenteric inflammatory response. No free air. Lymph Nodes: Within normal limits. Bones: Within normal limits for the patient's age. Soft Tissues: There is a small fat containing umbilical hernia. PELVIS: Bladder: Symmetric distention, no gross wall thickening. Reproductive Organs: There is an IUD in good position. Lymph Nodes: Within normal limits. Bones: Within normal limits for the patient's age. IMPRESSION: No acute abdominal or pelvic process. RADIATION DOSE DELIVERED: 1,055.1mGy.cm Total DLP DATA REPOSITORY: All CT scans at this facility are submitted to the National Radiology Data Registry (NRDR) Dose Index Registry (DIR) with the [employer] (ACR). RADIATION OPTIMIZATION: All CT scans at this facility use at least one of these dose optimization te chniques: automated exposure control; mA and/or kV adjustment per patient size (includes targeted exa ms where dose is matched to clinical indication); or iterative reconstruction.
[2020-07-29] MEDS: Omnipaque 350 MG/ML 100 ML BTL IJ (12:42)
[2020-07-29] MEDS: Normal Saline - Diluent 50 ML VIAL IV (12:43)
== END 2020-07-29 15:13 ==
PROVIDERS: PCP Nurse Practitioner Family; Visit Provider Family Medicine
DX: R10.9 Unspecified abdominal pain (principal); K42.9 Umbilical hernia without obstruction or gangrene
CPT/HCPCS: 74177; J3490

== ENCOUNTER 2020-11-25 15:51 | Outpatient (REF) | payer MEDICAID, SELFPAY ==
--- NOTE | 2020-11-25 14:40 | PAPFT_PTH ---
PATIENT: Belia Rubio LOC: [facility] U#:[id number] AGE/SX: 35/F ROOM: RE11/25/[address]: Allison Dejesus MD : 1985 BED: DIS: 11/25/2020 SPEC #: [id number] RECD: 11/25/20 16:46 STATUS: SHAUN REQ #: [id number] MIKHAIL: 11/25/20 14:[address]: Allison Dejesus DEPT: [facility] Cytology RECD BY: Belinda Silva ENTERED: 11/25/20 16:50 SP TYPE: PAPFT OTHR DR: Ros Monreal Tissues: 1 - CX/ENDOCX FOR PAP SMEARS Procedures: PAP THIN PREP/UVM Screening HPV DNA PROBE Comments: [id number]
== END 2020-11-25 15:52 | disposition home or self-care (01) ==
LOC: LBN 15:51
PROVIDERS: PCP Nurse Practitioner Family; Visit Provider Obstetrics & Gynecology
DX: Z12.4 Encounter for screening for malignant neoplasm of cervix (principal); Z11.51 Encounter for screening for human papillomavirus (HPV)
CPT/HCPCS: 88142; 87624

== ENCOUNTER 2021-03-17 15:42 | Outpatient (REF) | payer MEDICAID, SELFPAY ==
[2021-03-17 20:47] LABS: HCT 37.7 % (36.0-46.0); HGB 12.7 g/dL (11.2-15.7); MCH 33.2 pg (27.0-33.0); MCHC 33.7 % (32.0-36.0); MCV 98.4 fL (80-95); MPV 11.2 fL (8.0-11.0); Platelet Count 158 10^3/uL (130-400); RBC 3.83 10^6/uL (3.93-5.22); RDW-SD 46.5 fL; WBC 6.54 10^3/uL (4.4-10.8)
[2021-03-17 20:58] LABS: Iron 78 ug/dL (50-170); Total Iron Binding Capacity 303 ug/dL (250-450); Transferrin Sat 26 % (15-50)
[2021-03-17 21:08] LABS: Anion Gap 10.9 mmol/L (3-11); BUN 11 mg/dL (7-18); CO2 24.1 mmol/L (21.0-32.0); CREATININE 1.2 mg/dL (0.55-1.02); Calcium 9.4 mg/dL (8.5-10.1); Chloride 107 mmol/L (98-107); Estimated GFR 51.74 (mL/min/1.73m2); Glucose 84 mg/dL (74-106); Potassium 3.9 mmol/L (3.5-5.1); Sodium 142 mmol/L (136-145); TSH (W/Ref FT4) 1.56 uIU/mL (0.36-3.74)
[2021-03-17 21:21] LABS: Vitamin D 25 Total 21.5 ng/mL (30-100)
[2021-03-18 17:07] LABS: Vitamin B12 299 pg/mL (193-986)
== END 2021-03-17 15:43 | disposition home or self-care (01) ==
LOC: NCHCN 15:42
PROVIDERS: PCP Nurse Practitioner Family; Visit Provider Nurse Practitioner Family
DX: D75.89 Other specified diseases of blood and blood-forming organs (principal); Z86.2 Personal history of diseases of the blood and blood-forming organs and certain disorders involving the immune mechanism; R53.83 Other fatigue
CPT/HCPCS: 80048; 82306; 85027; 82607; 83540; 83550; 84443

== ENCOUNTER 2021-04-28 13:24 | Outpatient (REF) | payer MEDICAID, SELFPAY ==
[2021-04-28 20:48] LABS: ESR 28 mm/hr (0-20)
[2021-04-28 21:16] LABS: C-Reactive Protein 1.15 mg/dL (0.0-0.3); CREATININE 1.1 mg/dL (0.55-1.02)
[2021-04-29 17:03] LABS: Rheumatoid Factor <8.6 IU/mL (<12.0)
[2021-05-02 14:31] LABS: ANA Interpretation Negative (Negative)
== END 2021-04-28 13:25 | disposition home or self-care (01) ==
LOC: NCHCN 13:24
PROVIDERS: PCP Nurse Practitioner Family; Visit Provider Nurse Practitioner Family
DX: R53.83 Other fatigue (principal)
CPT/HCPCS: 85652; 82565; 86038; 86140; 86431

== ENCOUNTER 2021-11-01 16:39 | Outpatient (REF) | payer MEDICAID, SELFPAY | END 2021-11-01 16:40 | disposition home or self-care (01) | LOC: NCHCN 16:39 | PROVIDERS: PCP Nurse Practitioner Family; Visit Provider Nurse Practitioner Family | DX: R30.0 Dysuria (principal) | CPT/HCPCS: 87077; 87086; 87186 ==

== ENCOUNTER 2022-07-27 13:56 | Outpatient (REF) | payer MEDICAID, SELFPAY ==
[2022-07-27 20:56] LABS: Iron 117 ug/dL (50-170); Total Iron Binding Capacity 303 ug/dL (250-450); Transferrin Sat 39 % (15-50)
[2022-07-27 20:57] LABS: ALT 23 U/L (14-59); AST 16 U/L (15-37); Albumin 3.9 g/dL (3.4-5.0); Alkaline Phosphatase 71 U/L (46-116); Anion Gap 10.2 mmol/L (3-11); BUN 13 mg/dL (7-18); Bilirubin, Total 0.3 mg/dL (0.2-1.0); CO2 25.8 mmol/L (21.0-32.0); CREATININE 1.1 mg/dL (0.55-1.02); Chloride 105 mmol/L (98-107); Estimated GFR 67.62 (mL/min/1.73m2); Glucose 93 mg/dL (74-106); Potassium 3.8 mmol/L (3.5-5.1); Sodium 141 mmol/L (136-145); Total Protein 7.1 g/dL (6.4-8.2)
[2022-07-27 21:03] LABS: HCT 37.6 % (36.0-46.0); HGB 12.7 g/dL (11.2-15.7); MCH 32.2 pg (27.0-33.0); MCHC 33.8 % (32.0-36.0); MCV 95 fL (80-95); MPV 10.6 fL (8.0-11.0); Platelet Count 183 10^3/uL (130-400); RBC 3.95 10^6/uL (3.93-5.22); RDW 12.4 % (11.7-14.6); RDW-SD 43.7 fL; WBC 6.69 10^3/uL (4.4-10.8)
== END 2022-07-27 13:57 | disposition home or self-care (01) ==
LOC: NCHCN 13:56
PROVIDERS: PCP Nurse Practitioner Family; Visit Provider Nurse Practitioner Family
DX: R79.1 Abnormal coagulation profile (principal); Z86.2 Personal history of diseases of the blood and blood-forming organs and certain disorders involving the immune mechanism; D75.89 Other specified diseases of blood and blood-forming organs; R94.4 Abnormal results of kidney function studies; G25.81 Restless legs syndrome
CPT/HCPCS: 80053; 85027; 83540; 83550

== ENCOUNTER 2022-12-13 04:05 | Outpatient (CLI) | payer MEDICAID, SELFPAY ==
[2022-12-13 12:27] LABS: Panorama Kit Sent via Fed Ex
[2022-12-13 12:37] LABS: Glucose,1 Hr (Glucola) 92 mg/dL (80-140)
[2022-12-13 12:43] LABS: Abs Immature Grans 0.02 10^3/uL (0.0-0.06); Absolute Basophil Count 0.01 10^3/uL (0.0-0.2); Absolute Eosinophil Count 0.06 10^3/uL (0.0-0.7); Absolute Lymphocyte Count 1.55 10^3/uL (1.2-3.4); Absolute Monocyte Count 0.28 10^3/uL (0.1-0.8); Basophils % 0.2; Eosinophils % 1.1; HGB 11.8 g/dL (11.2-15.7); Immature Grans % 0.4; Lymphocytes % 28.6; MCH 31.8 pg (27.0-33.0); MCHC 33.7 % (32.0-36.0); MCV 94 fL (80-95); MPV 10.3 fL (8.0-11.0); Monocytes % 5.2; Neutrophils % 64.5; Platelet Count 144 10^3/uL (130-400); RBC 3.71 10^6/uL (3.93-5.22); RDW 12.7 % (11.7-14.6); RDW-SD 43.7 fL; WBC 5.42 10^3/uL (4.4-10.8)
[2022-12-13 13:25] LABS: ALT 17 U/L (14-59); AST 10 U/L (15-37); Albumin 3.5 g/dL (3.4-5.0); Alkaline Phosphatase 57 U/L (46-116); Anion Gap 8.2 mmol/L (3-11); BUN 9 mg/dL (7-18); Bilirubin, Total 0.2 mg/dL (0.2-1.0); CO2 23.8 mmol/L (21.0-32.0); CREATININE 0.7 mg/dL (0.55-1.02); Calcium 8.9 mg/dL (8.5-10.1); Chloride 105 mmol/L (98-107); Estimated GFR 115.59 (mL/min/1.73m2); Glucose 85 mg/dL (74-106); Potassium 3.2 mmol/L (3.5-5.1); Sodium 137 mmol/L (136-145); Total Protein 6.7 g/dL (6.4-8.2)
[2022-12-14 10:50] LABS: Rubella IgG Ab (UVM) Positive (See Note); Varicella IgG Antibody Positive (See Note)
[2022-12-14 11:03] LABS: Hepatitis B Surface Ag Negative (Negative)
[2022-12-14 12:11] LABS: HIV-1/2 Ag & Ab Screen Negative (Negative)
[2022-12-14 12:18] LABS: Hepatitis C Ab w Rflx HCV PCR Negative (Negative)
[2022-12-15 16:44] LABS: Syphilis IgG w/Reflex Nonreactive (Nonreactive)
[2023-01-21 16:23] LABS: Specimen WB Whole Blood
== END 2022-12-13 04:06 | disposition home or self-care (01) ==
LOC: LBO 04:05
PROVIDERS: PCP Nurse Practitioner Family; Visit Provider Advanced Practice Midwife
DX: Z34.91 Encounter for supervision of normal pregnancy, unspecified, first trimester
CPT/HCPCS: 36415; 80053; 81220; 81222; 82950; 86787; 86803; 86850; 86900; 86901; 87340; 87389; 85025; 86762; 86780

== ENCOUNTER 2022-12-13 13:51 | Outpatient (REF) | payer MEDICAID, SELFPAY ==
[2022-12-13 14:52] LABS: *AMPHETAMINES SCREEN URINE Negative (Negative); *BARBITURATES SCREEN URINE Negative (Negative); *BENZODIAZEPINES SCREEN URINE Negative (Negative); Cannabinoids THC Negative (Negative); Cocaine Screen,Urine Negative (Negative); METHADONE URINE SCREEN Negative (Negative); OPIATES URINE SCREEN Negative (Negative); Tricyclic Antidepressants Negative (Negative)
[2022-12-14 13:34] LABS: Chlamydia Result Negative (Negative); GC Result Negative (Negative)
[2022-12-19 13:20] LABS: Buprenorphine Negative ng/mL (Cutoff: 5.0); Norbuprenorphine Negative ng/mL (Cutoff: 2.5)
== END 2022-12-13 13:52 | disposition home or self-care (01) ==
LOC: LBN 13:51
PROVIDERS: PCP Nurse Practitioner Family; Visit Provider Advanced Practice Midwife
DX: Z34.91 Encounter for supervision of normal pregnancy, unspecified, first trimester (principal)
CPT/HCPCS: 80307; 80348; 87077; 87491; 87591; 87086; 87186; 87480; 87510; 87660

== ENCOUNTER 2023-01-08 03:46 | Outpatient (CLI) | payer MEDICAID, SELFPAY ==
[2023-01-08 12:11] LABS: HCT 34.9 % (36.0-46.0); HGB 12.2 g/dL (11.2-15.7); MCH 32.3 pg (27.0-33.0); MCV 92 fL (80-95); MPV 10.4 fL (8.0-11.0); Platelet Count 144 10^3/uL (130-400); RBC 3.78 10^6/uL (3.93-5.22); RDW 12.9 % (11.7-14.6); RDW-SD 43.5 fL; WBC 6.35 10^3/uL (4.4-10.8)
[2023-01-10 13:01] LABS: AFP 17.1 ng/mL; Cigarette smoking status non-Smoker; GA used in risk estimate Scan estimate; IVF Pregnancy No; Initial or repeat testing Initial testing; Insulin dependent diabetes No; Maternal Weight 210 lbs; Number of Fetuses 1; Prev Pregnancy w/NTD No; RECOMMENDED FOLLOW UP None.; Results Summary Normal risk
== END 2023-01-08 03:47 | disposition home or self-care (01) ==
LOC: LBO 03:46
PROVIDERS: Advanced Practice Midwife; PCP Nurse Practitioner Family; Visit Provider Advanced Practice Midwife
DX: Z34.91 Encounter for supervision of normal pregnancy, unspecified, first trimester
CPT/HCPCS: 81220; 81222; 85027; 82105

== ENCOUNTER → 2023-03-14 01:47 | Outpatient (CLI) | payer MEDICAID, SELFPAY ==
--- NOTE | 2023-03-14 08:00 | DI.US_ITS ---
Exam(s) US OB STEPHEN WEIGHT EXAM: US OB STEPHEN WEIGHT CLINICAL HISTORY: Placenta distance from OS, weight, STEPHEN,o40.2xx0,o44.42. TECHNIQUE: Transabdominal obstetrical ultrasound performed. COMPARISON: US US OB DETAILED MORPHOLOGY from 02/14/2023 US US OB DETAILED MORPHOLOGY from 02/14/2023 [facility] FINDINGS:: Sonographic images demonstrate a single intrauterine gestation in variable position. Placenta: Anterior. Tip of the placenta now measures 2.9 cm from internal os. Cervical length Cm. Amniotic fluid index: 21 cm. Largest pocket of fluid measures 6.7 cm. Amount of fluid is within rayna l limits. heart rate motion is Dopplered at: 153 bpm. BIOMETRIC DATA: BPD: 60mm = 24+3 weeks HC: 235mm = 25+4 weeks AC: 207mm = 25+2 weeks FL: 45 mm = 24+5 weeks EFW: 761 Gms = 75% Composite Age: 25 +0 weeks weeks BARBRA: 27 Jun 2023 IMPRESSION: size and weight are within the expected range. Tip of placenta now measures 2.9 cm from internal os. DATA REPOSITORY:
== END ==
PROVIDERS: PCP Nurse Practitioner Family; Visit Provider Advanced Practice Midwife
DX: O40.2XX0 Polyhydramnios, second trimester, not applicable or unspecified (principal); O44.42 Low lying placenta NOS or without hemorrhage, second trimester; Z3A.24 24 weeks gestation of pregnancy
CPT/HCPCS: 76816

== ENCOUNTER 2023-03-27 13:34 | Outpatient (REF) | payer MEDICAID, SELFPAY | END 2023-03-27 13:35 | disposition home or self-care (01) | LOC: LBN 13:34 | PROVIDERS: PCP Nurse Practitioner Family; Visit Provider Advanced Practice Midwife | DX: O26.892 Other specified pregnancy related conditions, second trimester (principal); R30.0 Dysuria; Z3A.26 26 weeks gestation of pregnancy | CPT/HCPCS: 87086 ==

== ENCOUNTER 2023-04-09 04:49 | Outpatient (CLI) | payer MEDICAID, SELFPAY ==
[2023-04-09 11:57] LABS: HCT 30.2 % (36.0-46.0); HGB 10.3 g/dL (11.2-15.7); MCH 33.6 pg (27.0-33.0); MCHC 34.1 % (32.0-36.0); MCV 98 fL (80-95); MPV 9.8 fL (8.0-11.0); Platelet Count 156 10^3/uL (130-400); RBC 3.07 10^6/uL (3.93-5.22); RDW 14.1 % (11.7-14.6); RDW-SD 50.3 fL; WBC 5.62 10^3/uL (4.4-10.8)
[2023-04-09 12:49] LABS: Glucose,1 Hr (Glucola) 112 mg/dL (80-140)
== END 2023-04-09 04:50 | disposition home or self-care (01) ==
LOC: LBO 04:49
PROVIDERS: PCP Nurse Practitioner Family; Visit Provider Advanced Practice Midwife
DX: Z34.92 Encounter for supervision of normal pregnancy, unspecified, second trimester (principal)
CPT/HCPCS: 36415; 82950; 85027

== ENCOUNTER → 2023-04-13 01:46 | Outpatient (CLI) | payer MEDICAID, SELFPAY ==
--- NOTE | 2023-04-13 08:00 | DI.US_ITS ---
Exam(s) US OB STEPHEN WEIGHT EXAM: US OB STEPHEN WEIGHT CLINICAL HISTORY: placenta 2.9 cms from os, repeat STEPHEN,polyhydramnios. TECHNIQUE: Transabdominal obstetrical ultrasound performed. COMPARISON: US US OB STEPHEN WEIGHT from 03/14/2023 FINDINGS: Number of fetuses: 1 position: VARIED Placental location: There is an anterior placenta. The tip of the placenta is 3.2 cm from the internal salesperson al os. No evidence of previa. BIOMETRIC DATA: BPD: 7.59cm, 30weeks 3days HC: 29.31cm, 32weeks 2days AC: 26.89cm, 31weeks FL: 5.62cm, 29weeks 4days EFW: 1,608.3g, 3lb 9.9oz, 96.7% Composite Age: 30weeks 6days BARBRA: 06/16/2023 Heart Rate: 140bpm Amniotic fluid index: 20.81cm. Visually, amount of fluid is within normal limits. IMPRESSION: 1. Single live intrauterine gestation as above. 2. Estimated weight is 1608gms. This is the 97th percentile. 3. Amniotic fluid index is 21 cm. Visually, within normal limits. 4. The placental tip is 3.2 cm from the internal os. DATA REPOSITORY:
== END ==
PROVIDERS: PCP Nurse Practitioner Family; Visit Provider Advanced Practice Midwife
DX: O40.2XX0 Polyhydramnios, second trimester, not applicable or unspecified (principal); O44.42 Low lying placenta NOS or without hemorrhage, second trimester; Z3A.28 28 weeks gestation of pregnancy
CPT/HCPCS: 76816

== ENCOUNTER 2023-05-07 04:44 | Outpatient (CLI) | payer MEDICAID, SELFPAY ==
[2023-05-07 11:07] VITALS: BP 108/64; PULSE 68
[2023-05-07 11:09] VITALS: BP 108/64; PULSE 68; TEMP 36.5
--- NOTE | 2023-05-07 11:39 | W.OBNST ---
Date of service: 05/07/23 Time of Service: 11:39 NST Evaluation Reason for NST Reasons for Nonstress Test: POLYHYDRAMNIOS Gestational Age Gestational Age in Weeks and Days: 32 Weeks and 0Days Test and Monitor Explained Test/Monitor Explained: Test Explained, Monitor Explained and Patient Verbalized Understanding Vital Signs Blood Pressure: 108/64 Pulse: 68 Temperature: 97.7 F NST Information Date on Monitor: 05/07/23 Time on Monitor: 10:36 Date off Monitor: 05/07/23 Time off Monitor: 11:39 Total Time on Monitor: 63 NST Interventions: None Contraction Frequency: 0 NST Evaluation Patient States Movement: Present FHR Baseline: 145 Variability: Moderate 6-25 bpm Accelerations: 15x15 Decelerations: None NST Results: Reactive Note Ultrasound Done: N/A. NST Note Note: RTO 1 wk for weekly NST EFW/STEPHEN in 1-2 wks NST Reviewed and Verified by: Leila Pratt
[2023-05-07 11:40] VITALS: BP 108/64; PULSE 68; TEMP 36.5
== END 2023-05-07 11:55 ==
LOC: BCD 04:49 → OBS 10:42
PROVIDERS: PCP Nurse Practitioner Family; Visit Provider Advanced Practice Midwife
DX: O40.3XX0 Polyhydramnios, third trimester, not applicable or unspecified (principal); Z3A.32 32 weeks gestation of pregnancy
CPT/HCPCS: 59025

== ENCOUNTER 2023-05-14 07:27 | Outpatient (CLI) | payer MEDICAID, SELFPAY ==
[2023-05-14 10:33] VITALS: BP 110/64; PULSE 86; TEMP 36.7
--- NOTE | 2023-05-14 12:37 | W.OBNST ---
Date of service: 05/14/23 Time of Service: 12:37 NST Evaluation Reason for NST Reasons for Nonstress Test: POLYHYDRAMNIOS Gestational Age Gestational Age in Weeks and Days: 33 Weeks and 0Days Test and Monitor Explained Test/Monitor Explained: Test Explained and Monitor Explained Vital Signs Blood Pressure: 110/64 Pulse: 86 Temperature: 98.1 F NST Information Date on Monitor: 05/14/23 Time on Monitor: 10:30 Date off Monitor: 05/14/23 Time off Monitor: 11:07 Total Time on Monitor: 37 NST Interventions: None NST Evaluation Patient States Movement: Present FHR Baseline: 145 Variability: Moderate 6-25 bpm Accelerations: 15x15 Decelerations: None NST Results: Reactive Note Ultrasound Done: N/A. NST Note Note: Reactive NST. US scheduled for 05/17 and visit and NST scheduled in 1 week. NST Reviewed and Verified by: Sarah Lomeli
[2023-05-14 12:38] VITALS: BP 110/64; PULSE 86; TEMP 36.7
== END 2023-05-14 11:10 | disposition home or self-care (01) ==
LOC: BCD 07:29 → OBS 10:25
PROVIDERS: PCP Nurse Practitioner Family; Visit Provider Advanced Practice Midwife
DX: O40.3XX1 Polyhydramnios, third trimester, fetus 1 (principal); Z3A.33 33 weeks gestation of pregnancy
CPT/HCPCS: 59025

== ENCOUNTER → 2023-05-18 00:34 | Outpatient (CLI) | payer MEDICAID, SELFPAY ==
--- NOTE | 2023-05-18 07:00 | DI.US_ITS ---
Exam(s) US OB STEPHEN WEIGHT EXAM: US OB STEPHEN WEIGHT CLINICAL HISTORY: interval growth,STEPHEN,polyhydramnios,O40.2xx0,O26.849. TECHNIQUE: Transabdominal obstetrical ultrasound performed. COMPARISON: US US OB STEPHEN WEIGHT from 03/14/2023 US US OB STEPHEN WEIGHT from 04/13/2023 FINDINGS:: Number of fetuses: One. position: Vertex. Placental location: Anterior. Placental tip measures 2.8 cm from internal os. BIOMETRIC DATA: BPD: 86mm = 34+4 weeks HC: 310mm = 34+4 weeks AC: 309mm = 34+ 6 weeks FL: 65 mm = 33+4 weeks EFW: 2424 Gms = 67% Composite Age: 34+3 weeks BARBRA: 26 June 2023 Heart Rate: 142BPM Amniotic fluid index: 19.7 cm. Amount of fluid is visually within normal limits. IMPRESSION: size and weight are within the expected range. DATA REPOSITORY:
== END ==
PROVIDERS: PCP Nurse Practitioner Family; Visit Provider Advanced Practice Midwife
DX: O26.843 Uterine size-date discrepancy, third trimester (principal); O09.523 Supervision of elderly multigravida, third trimester; O40.3XX0 Polyhydramnios, third trimester, not applicable or unspecified; Z3A.34 34 weeks gestation of pregnancy
CPT/HCPCS: 76816

== ENCOUNTER 2023-05-21 07:16 | Outpatient (CLI) | payer MEDICAID, SELFPAY ==
[2023-05-21 10:26] VITALS: BP 111/57; PULSE 78; TEMP 36.6
[2023-05-21 10:34] VITALS: BP 111/57; PULSE 78
--- NOTE | 2023-05-21 12:18 | W.OBNST ---
Date of service: 05/21/23 Time of Service: 12:18 NST Evaluation Reason for NST Reasons for Nonstress Test: POLYHYDRAMNIOS Reason for NST Other: AMA, recommended by MFM Gestational Age Gestational Age in Weeks and Days: 34 Weeks and 0Days Test and Monitor Explained Test/Monitor Explained: Test Explained, Monitor Explained and Patient Verbalized Understanding Vital Signs Blood Pressure: 111/57 Pulse: 78 Temperature: 97.9 F NST Information Date on Monitor: 05/21/23 Time on Monitor: 10:32 Date off Monitor: 05/21/23 Time off Monitor: 10:52 Total Time on Monitor: 20 NST Interventions: PO Hydration Contraction Frequency: 0 NST Evaluation Patient States Movement: Present FHR Baseline: 145 Variability: Moderate 6-25 bpm Accelerations: 15x15 Decelerations: None NST Results: Reactive Note Ultrasound Done: N/A. NST Note Note: NST is reactive and reassuring. Will have weekly NST and next visit in office in 2 weeks. US for growth and STEPHEN ordered for 2-3 weeks from now. ADONIS NST Reviewed and Verified by: Sarah Elise
[2023-05-21 12:19] VITALS: BP 111/57; PULSE 78; TEMP 36.6
== END 2023-05-21 10:55 ==
LOC: BCD 07:17 → OBS 10:19
PROVIDERS: PCP Nurse Practitioner Family; Visit Provider Advanced Practice Midwife
DX: O40.3XX1 Polyhydramnios, third trimester, fetus 1 (principal); Z3A.34 34 weeks gestation of pregnancy
CPT/HCPCS: 59025

== ENCOUNTER 2023-05-28 07:40 | Outpatient (CLI) | payer MEDICAID, SELFPAY ==
[2023-05-28 10:36] VITALS: BP 107/55; PULSE 73; TEMP 36.4
[2023-05-28 10:53] VITALS: BP 107/55; PULSE 73
[2023-05-28 11:36] VITALS: BP 107/55; PULSE 73; TEMP 36.4
--- NOTE | 2023-05-28 11:36 | W.OBNST ---
Date of service: 05/28/23 Time of Service: 11:36 NST Evaluation Reason for NST Reasons for Nonstress Test: OTHER, SEE COMMENT Reason for NST Other: polyhydramious Gestational Age Gestational Age in Weeks and Days: 35 Weeks and 0Days Test and Monitor Explained Test/Monitor Explained: Test Explained Vital Signs Blood Pressure: 107/55 Pulse: 73 Temperature: 97.5 F NST Information Date on Monitor: 05/28/23 Time on Monitor: 10:40 Date off Monitor: 05/28/23 Time off Monitor: 11:30 Total Time on Monitor: 50 NST Interventions: None NST Evaluation Patient States Movement: Present FHR Baseline: 135 Variability: Moderate 6-25 bpm Accelerations: 15x15 Decelerations: None NST Results: Reactive Note Ultrasound Done: N/A. NST Note Note: EFW/STEPHEN in the DI on 05/30, weekly NST's scheduled NST Reviewed and Verified by: Leila Pratt
== END 2023-05-28 11:32 | disposition home or self-care (01) ==
LOC: BCD 07:44 → OBS 10:35
PROVIDERS: PCP Nurse Practitioner Family; Visit Provider Advanced Practice Midwife
DX: O40.3XX1 Polyhydramnios, third trimester, fetus 1 (principal)
CPT/HCPCS: 59025

== ENCOUNTER → 2023-06-01 00:51 | Outpatient (CLI) | payer MEDICAID, SELFPAY ==
--- NOTE | 2023-06-01 08:18 | DI.US_ITS ---
Exam(s) US OB STEPHEN WEIGHT EXAM: US OB STEPHEN WEIGHT CLINICAL HISTORY: growth and STEPHEN/ presentation,)09.529,O40.2xx0,polyhydramnios. TECHNIQUE: Transabdominal obstetrical ultrasound was performed. COMPARISON: Prior ultrasound examination of 05/18/2023 was reviewed. FINDINGS: There is a single viable intrauterine gestation with cardiac activity identified-142 bpm The fetus is presently in cephalic position . Amniotic fluid: There is a normal amount of amniotic fluid with an STEPHEN of 17.03cm. Placental location: The placenta is anterior grade 1,with no evidence of placenta previa.The distance from the tip of the placenta to the internal cervical os is 2.8 cm on today's study which is similar to previous. Dating parameters place this at approximately 36 weeks and 1 day gestational age, implying BARBRA of 06/28/2023. BPD measures 36 weeks and 1 day HC measures 36 weeks and 3 days AC measures 36 weeks and 1 day FL measures 35 weeks and 5 days Estimated weight is 2839 gm-6 pounds 4 ounces Fetus is at the 63rd percentile on the Hadlock scale. IMPRESSION:: Viable 3rd trimester gestation, as described above. DATA REPOSITORY:
== END ==
PROVIDERS: PCP Nurse Practitioner Family; Visit Provider Advanced Practice Midwife
DX: O09.523 Supervision of elderly multigravida, third trimester (principal); O40.3XX0 Polyhydramnios, third trimester, not applicable or unspecified; Z3A.36 36 weeks gestation of pregnancy
CPT/HCPCS: 76816

== ENCOUNTER 2023-06-04 04:50 | Outpatient (CLI) | payer MEDICAID, SELFPAY ==
[2023-06-04 11:10] VITALS: BP 97/54; PULSE 76
[2023-06-04 12:08] VITALS: BP 97/54; PULSE 76; TEMP 36.8
[2023-06-04 12:20] LABS: HCT 30.8 % (36.0-46.0); MCH 32.1 pg (27.0-33.0); MCHC 32.5 % (32.0-36.0); MCV 99 fL (80-95); Platelet Count 129 10^3/uL (130-400); RBC 3.12 10^6/uL (3.93-5.22); RDW 14.2 % (11.7-14.6); RDW-SD 50.4 fL; WBC 6.46 10^3/uL (4.4-10.8)
--- NOTE | 2023-06-04 12:56 | W.OBNST ---
Date of service: 06/04/23 Time of Service: 12:56 NST Evaluation Reason for NST Reasons for Nonstress Test: POLYHYDRAMNIOS Gestational Age Gestational Age in Weeks and Days: 36 Weeks and 0Days Test and Monitor Explained Test/Monitor Explained: Test Explained, Monitor Explained and Patient Verbalized Understanding Vital Signs Blood Pressure: 97/54 Pulse: 76 Temperature: 98.2 F Urine Results Urine Protein: Negative Urine Ketones: Negative Urine Glucose: Negative Urine Blood: Negative NST Information Date on Monitor: 06/04/23 Time on Monitor: 10:48 Date off Monitor: 06/04/23 Time off Monitor: 11:34 Total Time on Monitor: 46 NST Interventions: None Contraction Frequency: 0 NST Evaluation Patient States Movement: Present FHR Baseline: 125 Variability: Moderate 6-25 bpm Accelerations: 15x15 Decelerations: None NST Results: Reactive Note Ultrasound Done: Presentation Presentation Results: vertex presentation confirmed Coding for Presentation w/NST: Completed Exam. NST Note Note: reactive NST. presentation confirmed with bedside POCUS. GBS sent. RTO 1 week NST Reviewed and Verified by: Sarah Lomeli
[2023-06-04 12:57] VITALS: BP 97/54; PULSE 76; TEMP 36.8
== END 2023-06-04 12:20 ==
LOC: BCD 04:51 → OBS 10:45
PROVIDERS: PCP Nurse Practitioner Family; Visit Provider Advanced Practice Midwife
DX: O40.3XX1 Polyhydramnios, third trimester, fetus 1 (principal); Z3A.36 36 weeks gestation of pregnancy
CPT/HCPCS: 36415; 85027; 87186; 59025; 87081

== ENCOUNTER 2023-06-11 07:05 | Outpatient (CLI) | payer MEDICAID, SELFPAY ==
[2023-06-11 10:35] VITALS: BP 117/56; PULSE 79; TEMP 36.8
[2023-06-11 11:19] VITALS: BP 117/56; PULSE 79
[2023-06-11] MEDS: Normal Saline Flush 10 ML SYR IVP (11:26)
[2023-06-11 11:27] LABS: HCT 29.1 % (36.0-46.0); HGB 9.6 g/dL (11.2-15.7); MCH 32.4 pg (27.0-33.0); MCV 98 fL (80-95); MPV 9.8 fL (8.0-11.0); Platelet Count 121 10^3/uL (130-400); RBC 2.96 10^6/uL (3.93-5.22); RDW 14.2 % (11.7-14.6); RDW-SD 50.4 fL; WBC 5.82 10^3/uL (4.4-10.8)
[2023-06-11] MEDS: IRON SUCROSE COMPLEX 200 MG in Normal Saline 100 ML 400 MG IVPB (11:35)
--- NOTE | 2023-06-11 14:06 | W.OBNST ---
Date of service: 06/11/23 Time of Service: 14:06 NST Evaluation Reason for NST Reasons for Nonstress Test: POLYHYDRAMNIOS Gestational Age Gestational Age in Weeks and Days: 37 Weeks and 0Days Test and Monitor Explained Test/Monitor Explained: Test Explained, Monitor Explained and Patient Verbalized Understanding Vital Signs Blood Pressure: 117/56 Pulse: 79 Temperature: 98.2 F NST Information Date on Monitor: 06/11/23 Time on Monitor: 10:38 Date off Monitor: 06/11/23 Time off Monitor: 11:34 Total Time on Monitor: 56 NST Interventions: PO Hydration NST Evaluation Patient States Movement: Present FHR Baseline: 135 Variability: Moderate 6-25 bpm Accelerations: 15x15 Decelerations: None NST Results: Reactive Note Ultrasound Done: N/A. NST Note Note: Belia is here for NST due to history of polyhydramnios during this . Hgb 9.6. Received an iron infusion today of venofer 200 mg IV today. RTO 1 week for nST and repeat iron infusion. NST Reviewed and Verified by: Sarah Lomeli
[2023-06-11 14:08] VITALS: BP 117/56; PULSE 79; TEMP 36.8
== END 2023-06-11 11:55 | disposition home or self-care (01) ==
LOC: BCD 07:06 → OBS 10:34
PROVIDERS: Advanced Practice Midwife; PCP Nurse Practitioner Family; Visit Provider Advanced Practice Midwife
DX: O40.3XX1 Polyhydramnios, third trimester, fetus 1 (principal); Z3A.37 37 weeks gestation of pregnancy
CPT/HCPCS: 36415; 85027; 59025; J1756

== ENCOUNTER 2023-06-18 06:00 | Outpatient (CLI) | payer MEDICAID, SELFPAY ==
[2023-06-18 10:24] LABS: HCT 31.9 % (36.0-46.0); HGB 10.6 g/dL (11.2-15.7); MCH 32.5 pg (27.0-33.0); MCHC 33.2 % (32.0-36.0); MCV 98 fL (80-95); MPV 9.5 fL (8.0-11.0); Platelet Count 125 10^3/uL (130-400); RBC 3.26 10^6/uL (3.93-5.22); RDW 14.8 % (11.7-14.6); RDW-SD 52.3 fL; WBC 5.86 10^3/uL (4.4-10.8)
[2023-06-18 10:27] VITALS: BP 111/55; PULSE 61; TEMP 36.8
[2023-06-18 10:28] VITALS: BP 111/55; PULSE 61
--- NOTE | 2023-06-18 11:02 | W.OBNST ---
Date of service: 06/18/23 Time of Service: 11:02 NST Evaluation Reason for NST Reasons for Nonstress Test: POLYHYDRAMNIOS Gestational Age Gestational Age in Weeks and Days: 38 Weeks and 0Days Test and Monitor Explained Test/Monitor Explained: Test Explained, Monitor Explained and Patient Verbalized Understanding Vital Signs Blood Pressure: 111/55 Pulse: 61 Temperature: 98.2 F NST Information Date on Monitor: 06/18/23 Time on Monitor: 10:21 Date off Monitor: 06/18/23 Time off Monitor: 10:50 Total Time on Monitor: 29 NST Interventions: None Contraction Frequency: irregular Comments: patient not feeling contractions NST Evaluation Patient States Movement: Present FHR Baseline: 135 Variability: Moderate 6-25 bpm Accelerations: 15x15 NST Results: Reactive Note Ultrasound Done: N/A. NST Note Note: NST is reactive and reassuring. Will have IV iron infusion today. Return in 1 week for NST and or prn for labor. ADONIS NST Reviewed and Verified by: Sarah Elise
[2023-06-18 11:03] VITALS: BP 111/55; PULSE 61; TEMP 36.8
[2023-06-18 11:04] LABS: Vitamin B12 175 pg/mL (193-986)
[2023-06-18] MEDS: IRON SUCROSE COMPLEX 400 MG in Normal Saline 250 ML 100 MG IVPB (11:05)
[2023-06-18] MEDS: Normal Saline Flush 10 ML SYR IVP (11:07)
== END 2023-06-18 13:23 | disposition home or self-care (01) ==
LOC: BCD 06:02 → OBS 10:24
PROVIDERS: Advanced Practice Midwife; PCP Nurse Practitioner Family; Visit Provider Advanced Practice Midwife
DX: O40.3XX0 Polyhydramnios, third trimester, not applicable or unspecified (principal); Z3A.38 38 weeks gestation of pregnancy
CPT/HCPCS: 59025; 36415; 85027; 96368; 82607; J1756

== ENCOUNTER 2023-06-25 07:25 | Outpatient (CLI) | payer MEDICAID, SELFPAY ==
[2023-06-25 10:58] VITALS: BP 108/52; PULSE 58; TEMP 36.6
[2023-06-25 11:05] VITALS: BP 108/52; PULSE 58
--- NOTE | 2023-06-25 17:28 | W.OBNST ---
Date of service: 06/25/23 Time of Service: 17:28 NST Evaluation Reason for NST Reasons for Nonstress Test: ADVANCED MATERNAL AGE Gestational Age Gestational Age in Weeks and Days: 39 Weeks and 0Days Test and Monitor Explained Test/Monitor Explained: Test Explained Vital Signs Blood Pressure: 108/52 Pulse: 58 Temperature: 97.9 F Urine Results Urine Protein: Negative Urine Ketones: Negative Urine Glucose: Negative Urine Blood: Negative NST Information Date on Monitor: 06/25/23 Time on Monitor: 10:57 Date off Monitor: 06/25/23 Time off Monitor: 11:24 Total Time on Monitor: 27 NST Interventions: None Contraction Frequency: irritability NST Evaluation Patient States Movement: Present FHR Baseline: 125 Variability: Moderate 6-25 bpm Accelerations: 15x15 Decelerations: None NST Results: Reactive Note Ultrasound Done: N/A. NST Note Note: Plan EFW/STEPHEN next week @ 40 wks (4 wks interval growth) Reviewed labor sx, pt to continue taking oral iron. NST Reviewed and Verified by: Leila Pratt
[2023-06-25 17:29] VITALS: BP 108/52; PULSE 58; TEMP 36.6
== END 2023-06-25 11:54 | disposition home or self-care (01) ==
LOC: BCD 07:26 → OBS 10:54
PROVIDERS: PCP Nurse Practitioner Family; Visit Provider Advanced Practice Midwife
DX: O09.523 Supervision of elderly multigravida, third trimester (principal); Z3A.39 39 weeks gestation of pregnancy
CPT/HCPCS: 59025

== ENCOUNTER 2023-06-30 08:45 | Inpatient (IN) | payer MEDICAID, SELFPAY ==
[2023-06-30] VITALS (13 sets, daily range): BP systolic 101–119; BP diastolic 49–81; PULSE 62–88; RESP 16–18; TEMP 36.3–36.5
[2023-06-30] MEDS: Normal Saline Flush 10 ML SYR IVP (09:00)
--- NOTE | 2023-06-30 09:05 | HPE_ITS ---
Date of service: 06/30/23 Time of Service: 09:06 Assessment and Plan Assessment and plan (1) Normal labor: Status: Acute Assessment and plan: 1. admit, CBC and type and screen 2. IV access for GBS prophylaxis with Ancef due to rash history with PCN 3. Support labor and expect NVD (2) GBS (group B Streptococcus carrier), +RV culture, currently : Status: Acute Assessment and plan: 1. IV access and Ancef per protocol. K[facility] OB-HPI Labor/Delivery History of Present Illness Reason for Visit: Term Labor Chief Complaint: Uterine Contractions; Suspected Rupture of Membranes , Associated Signs and Symptoms of Suspected ROM: leaking brown meconium fluid vaginally. BARBRA Calculator Estimated Delivery Date Method Current WG Current Estimate 07/02/23 Ultrasound #1 39w 5d Other Estimates 06/24/23 LMP (Certain) 40w 6d Comments: Belia and her , Juanito, present with complaint of regular contractions beginning at approximately 0700 and SROM at approximately 0830. She arrived 4cm, 80% VTX -2 with thin brown meconium fluid leaking. She is aware of her GBS + status resistant to Clindamycin and prefers Ancef for IV prophylaxis. No other complaints. History of Present Expected Delivery Route/Plan - CNM FOB/fiance - Juanito Barragan - (1st child together, 3 healthy children from previous relationship) BB no circ GBS POSITIVE, resistant to clindamycin, plan Ancef prophylaxis in labor Specific Issues/Plan 1. BMI 33 - early GTT 92; 28 wk glucola 112 2. History of abnormal pap- LEEP procedure 2012 3. History of anxiety and depression- buproprion SR 100 mg QD, 150 mg XL recommended. Pt chose to d/c buproprion in . 4. AMA & FOB family history of heart murmur & heart defect (valvular) of his father 4a. cfDNA low risk male, AFP=nml risk for NTD. Accepts [facility] Level 2 US & [facility] consult 4b. CF carrier screen POSITIVE- FOB tested neg in previous partner's 4c. Anatomy US at [facility]; echogenic foci in heart, polyhydramnios STEPHEN 28.7 and low lying placenta at 20 weeks 4d. US to be repeated @ 24 wk, refer back to [facility] if poly persists 4e. Scan @ 24 wks on 03/14: STEPHEN is 21, tip of placenta 2.9 cm from os. 4f. Scan @ 28 wks on 04/13: STEPHEN 21, tip to os 3.2, EFW 97th percentile. Repeat in 4-6 wks, wkly NST's @ 32 wks 4g. EFW/STEPHEN @ 34 wks: VTX,67% and STEPHEN 19.7 4h. EFW 63%ile, STEPHEN 17 @ 36 wks, repeat in 1 month if undelivered 5. Increased risk of preeclampsia - ASA recommended daily-started at 23 weeks 6. History of elevated creatinine- CMP 12/13/22: creat 0.7 (nml) 7. History of thrombocytopenia - Platelets 144, repeat @ 28 wks 156, 36 wks-129, 37 wks-121, 38 wks-125 8. Desires BTL, to have MD consult @ 30 wks 04/23 - Federal consent signed 9. Anemia: hgb 10.3 at 28 weeks, will increase iron rich foods and possibly add iron tablet OTC every other day 9a. Hgb 10.0 at 36 weeks - will start iron infusions with NSTs. 9b. Hgb 9.6 at 37 weeks, continue weekly iron infusions. At 38 wks hgb 10.6, IV infusions d/c/ed, taking oral Fe tabs 10. Sciatica - declines PT, massage techniques and stretches taught Assessment: History Reviewed & Current Informed Consent Informed Consent: Other (GBS prophylaxis medications) Review of Systems All systems reviewed & are unremarkable except as noted in HPI and below Genitourinary Comments: leaking brown fluid Musculoskeletal Comments: regular uteirne contractions 5 in 10 PFSH All Active Problems (Updated 06/30/23 @ 09:17 by Sarah Elise CNM) GBS (group B Streptococcus carrier), +RV culture, currently (Acute) Normal labor (Acute) Anemia (Chronic) Echogenic intracardiac focus of fetus on ultrasound (Acute) Polyhydramnios in second trimester, antepartum complication (Acute) Elderly multigravida (Acute) BMI 33.0-33.9,adult (Acute) (Acute) Anxiety (Chronic) Depression (Chronic) Medical History Uterine size date discrepancy, antepartum Family history of valvular heart disease Thrombocytopenia (04/01/13) Dysuria during History of kidney stones Low lying placenta nos or without hemorrhage, second trimester TRACE (stress urinary incontinence, female) History of abnormal cervical Pap smear Macrocytic anemia (04/01/13) depression (11/19/13) Ovarian cyst Abnormal Pap smear of cervix 2017: Nl, no HPV done 2016: ASCUS/Neg HPV 2014: NIL/+HRHPV 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 Neg OLAF. Surgical History Status post ovarian cystectomy Laparoscopic, Ovarian Cystectomy (~06/2017) bilateral - hemorrhagic cyst Cervical Conization/LEEP Family History Grandmother Breast cancer and her sister had breast cancer in their 70s/80s. Pt's mom and her sister have no abnormalities. Mother Hypothyroid Father Kidney stones Social History Smoking/Tobacco Use Status: Current-Occasional Tobacco Type: cigarettes Smoking packs per day: 1 Smoking cigarettes per day: 20.0 Quit status: considering quitting Counseling given: provider counseling Smoking risk assessment performed?: Yes Alcohol Intake: current Alcohol Intake frequency: holidays/special occasions only Details: Has been working with PCP. She and partner both really want to quit Drug use: Never Sexually active: Yes Do you feel safe at home: Yes Do you feel safe in your relationship?: Yes Female Reproductive History Menstrual Age of Menarche: 17 control method: pills History History 6 Para 4 Hx # Term Pregnancies 3 Multiple births 0 Hx # Pregnancies 1 Ectopic pregnancies 0 AB induced 0 Hx Number of Living Children 4 AB spontaneous 1 Past Pregnancies Del. Date GA/Weeks # Preg Succ Route Wgt Sex Labor Lgth Anesth esia Location [facility] 07/27/06 [address] Petey LUA 02/04/[address] Greg LUA 02/24/[address] Greg LUA 04/28/13 [address] Angelo [facility] Meds Allergies and Home Medications Allergies Allergy/AdvReac Type Severity Reaction Status Date / Time adhesive Allergy Mild Red, itchy Unverified 06/30/23 09:14 skin amoxicillin Allergy Itching Unverified 06/30/23 09:14 Home Medications Medication Instructions Recorded Confirmed Type omeprazole 20 mg capsule,delayed 20 mg PO DAILY 07/20/18 06/25/23 History release vits no.126-ferrous fum tab PO DAILY 11/07/22 06/25/23 History 28 mg iron-folic acid 800 mcg tablet (Classic ) aspirin 81 mg tablet,delayed 81 mg PO DAILY #45 tabs 03/06/23 06/25/23 Rx release (Adult Low Dose Aspirin) ferrous sulfate 325 mg (65 mg 325 mg PO DAILY 04/23/23 06/25/23 History iron) tablet (Elizabeth-Time) Exam Physical Exam Vital signs: BP 114/67 P74 Vital Signs Reviewed: Yes Constitutional Constitutional: mild distress (calms with reassurance) Detailed Labor and Delivery Exam Dilation: 4 Effacement (%): 80 station: -2 Position: CHRISTINE Cervix position: posterior Consistency: soft Galdamez Score: Cervical Points Exam 0 1 2 3 Dilation Closed 1-2cm 3-4 cm 5-6cm Effacement 0-30% 40-50% 60-70% 80% Consistency Firm Medium Soft Station -3 -2 -1,0 +1,+2 Position Posterior Mid Anterior GALDAMEZ Score(Cervical Ripeness Score): 8 Amniotic Membrane Status: Ruptured Rupture Method: Spontaneous Amniotic Fluid: Meconium Monitor Mode: External Contraction Frequency(min): 2 Contraction Duration(sec): 60 Contraction Intensity: Moderate/Strong Fetus A Heart Rate Baseline: 144 Monitor Accelerations: 10 X 10 Monitor Decelerations: None Variability: Moderate (6-25 BPM) Est. Weight: 7 lb 8 oz Date of Membrane Rupture: 06/30/23 Time of Membrane Rupture: 08:20 HEENT Exam HEENT Exam: Normal Neck Exam Neck Exam: Normal (normal visual inspection) Chest/Brest/Axilla Exam Chest Exam: Normal Breast Exam Breast Exam: Not Done Respiratory Exam Respiratory Exam: Normal Cardiovascular Exam Cardiovascular Exam: Normal Abdominal Exam Abdominal Exam: Normal (gravid uterus, size equals dates, position CHRISTINE) Rectal Exam Rectal Exam: Not Done Exam Exam: Normal (is leaking thin brown meconium fluid) Extremities Exam Extremities Exam: Normal Back/Spine/Pelvis Exam Back Exam: Normal Skin Exam Skin Exam: Normal Neurological Exam Neurological Exam: Normal Psychiatric Exam Psychiatric Exam: Normal Results Results Group Beta Strep: Positive Blood Type: O+ Rubella Status: Immune Varicella Immunity: Immune Lab Results: Hep B&C neg, HIV neg, Syphilis neg, GC CT neg, cfDNA Low Risk male, CF + trait but Juanito negative, 1 hour glucose 112 Risk Assessment Risk for Shoulder Dystocia Historical/Initial OB: POSITIVE FOR: Pre- BMI>30 40 Weeks: NEGATIVE FOR: EFW> 4500 gms, Maternal Weight Gain >40lb or Post Dates Delivery Plan @ 40 wks: NVD Risk for Pre-Eclampsia Yes, if one or more: NEGATIVE FOR: Hx Pre-E/Gest HTN, Chronic HTN, Multiple Gestation, Pre-gestational DM, Renal Disease, Systemic Lupus or APA Syndrome Yes, if 2 or more: POSITIVE FOR: Age>= 35 yrs and BMI>30; NEGATIVE FOR: Nulliparity, >10yr btwn pregnancies, ethinicty, Mother/Sister w/ Pre-E or Previous IUGR Risk for Post- Hemorrhage Initial: NEGATIVE FOR: Multiple Gestation, Previous PPH, Known Clotting Deficie ncy, Grand Multiparity or Anticoagulation 40 Weeks: POSITIVE FOR: Polyhydraminios (however at term STEPHEN normal 17) Counseled re: Active Management: Yes Date/Initials: 06/30/23 KH Risks Reviewed Risks Reviewed Upon Admission: Yes (mild increased risk for PPH due to BMI)
[2023-06-30 09:30] LABS: HCT 32.3 % (36.0-46.0); MCH 33.2 pg (27.0-33.0); MCHC 34.1 % (32.0-36.0); MCV 98 fL (80-95); MPV 9.4 fL (8.0-11.0); Platelet Count 138 10^3/uL (130-400); RBC 3.31 10^6/uL (3.93-5.22); RDW 15.8 % (11.7-14.6); RDW-SD 55.9 fL; WBC 6.47 10^3/uL (4.4-10.8)
[2023-06-30] MEDS: ceFAZolin 2 GM/50 ML BAG IVPB (09:31)
[2023-06-30] MEDS: Oxytocin 10 UNITS/ML VIAL IM (12:14)
--- NOTE | 2023-06-30 12:24 | OBVDS_ITS ---
Date of service: 06/30/23 Time of Service: 12:24 OB Labor/ Delivery Information Baby A Delivery Delivery Method: Spontaneaous Presentation: Cephalic Vertex Position: Right Occipital Anterior Cord Description-Baby A: 3 Vessels Amniotic Fluid: Meconium Estimated Blood Loss: 300 Delivery Outcome: Liveborn Infant Complications: none noted at Note: Deborah presented in active labor with SROM occuring at 0820 mec fluid. She was 4cm on arrival and carmela actively. FHR tracing 130's with moderate variabiity and accelerations 10X10, CAT I. We transitioned to doppler FHR assessments for remainder of labor to maximize maternal movement. She progressed quickly and had involuntary pushing effort at 1155. Second stage huddle held and we identiifed some increased risk for PPH due to rapid labor and polyhydramnios during this . At this point she had had a single 2gm dose of Ancef for GBS + status. She pushed well and baby rosalinda Chambers delivered NARGIS over small 1st degree perineal laceration at 1158. Nuchal cord X 2 was noted when head de livered and both loops were able to be reduced before shoulders delivered. Baby was brought skin to skin and excellent family bonding was noted. Apgars 7/9. Delayed cord clamping for minutes until pulsations ceased. Placenta delivered spontaneously via yoo mechanism, intact at 1213. Fundus firmed with massage and bi-manual exam demonstrated firm lower uterine segment and no clots in upper vaginal. EBL 300cc. Sponge and instrument count are correct. Belia plans to breast feed her son. They decline circumcision. Plan Tubal ligation at 6-8 weeks PP for contraception. Expect 24-48 hour PP stay and normal PP course. See completed delivery record for weight as mother and baby will remain skin to skin for 1-2 hours. Providers Nurse Air Pollution Control Engineer: Sarah Elise Nurse: Elo Boyer Labor/Delivery Information Number of Babies in Womb: 1 Steroids Given: None Reason Steroids Not Administered: N/A Group Beta Strep: Positive Antibiotics Administered: Yes Number of Doses of Antibiotics: 1 Rubella Status: Immune Blood Type: O+ Varicella Immunity: Immune Stages of Labor Onset of Labor Date: 06/30/23 Onset of Labor Time: 07:00 Complete Dilatation Date: 06/30/23 Complete Dilatation Time: 11:55 Labor - Stage 1 Duration: 4 hours and 55 minutes ROM Baby A: 06/30/23 ROM Baby A: 08:20 Delivery Date-Baby A: 06/30/23 Infant Delivery Time-Baby A: 11:58 Labor Stage 2 Duration: 3 minutes Placenta Delivery Date-Baby A: 06/30/23 Placenta Delivery Time-Baby A: 12:13 Labor-Stage 3 Duration: 15 minutes Total Length of Labor-Baby A: 4 hours and 58 minutes Baby A Gestational Status: Term (39-41.6 wks)
[2023-06-30] MEDS: Ibuprofen 600 MG TAB PO ×2 (13:25→20:06)
[2023-06-30] MEDS: Acetaminophen 325 MG TAB 650 MG PO ×2 (13:25→20:06)
[2023-06-30] MEDS: Dibucaine 1% 28 GM TUBE TP (13:36)
[2023-06-30] MEDS: Hamamelis Leaf/Glycerin 100 EACH BOX PR (13:37)
[2023-07-01] MEDS: Acetaminophen 325 MG TAB 650 MG PO (07:37)
[2023-07-01 07:45] VITALS: BP 106/58; PULSE 68; RESP 18; TEMP 36.7
--- NOTE | 2023-07-01 09:52 | W.PM.OBPNV1 ---
Date of service: 07/01/23 Time of Service: 09:30 Assessment and Plan Assessment and plan (1) care following vaginal delivery: Status: Acute Assessment and plan: 1. continue present management 2. Planning discharge later today if baby continues to do well per pediatrics 3. Will have follow up in office in 2 and 6 weeks PP. (2) Lactating mother: Status: Acute Assessment and plan: 1. Experienced breast feeding mother 2. Continue present management. Exam Physical Exam Vital signs: Temp Pulse Resp BP 98.1 F 68 18 106/58 L 07/01/23 07:45 07/01/23 07:45 07/01/23 07:45 07/01/23 07:45 Vital Signs Reviewed: Yes Constitutional Constitutional: no acute distress, average body habitus and cooperative HEENT Exam HEENT Exam: Normal Neck Exam Neck Exam: Normal (normal visual inspection) Respiratory Exam Respiratory Exam: Normal Cardiovascular Exam Cardiovascular Exam: Normal Abdominal Exam Abdomen: Other (normal exam) Fundal Exam Fundus: Below Umbilicus and Firm Comment: small lochia noted. Rectal Exam Rectal Exam: Not Done Exam Perineum: Intact and Normal Extremities Exam Extremity Exam: Normal (denies calf tenderness) and Full ROM Back/Spine/Pelvis Exam Back Exam: Normal Skin Exam Skin Exam: Normal Neurological Exam Neurological Exam: Normal Psychiatric Exam Psychiatric Exam: Normal Results Hemoglobin/Hematocrit: Hgb 11.0 g/dL (11.2-15.7) L 06/30/23 09:20 Hct 32.3 % (36.0-46.0) L 06/30/23 09:20 Abnormal Lab Findings: Abnormal Labs 06/30/23 09:20 RBC 3.31 L Hgb 11.0 L Hct 32.3 L MCV 98 H MCH 33.2 H RDW 15.8 H
--- NOTE | 2023-07-01 10:57 | W.PM.OBDISCH ---
Date of service: 07/01/23 Time of Service: 10:57 DS: Diagnosis Discharge Diagnosis (1) care following vaginal delivery: Status: Acute Asessment and Plan: 1. Normal PP course 2. Prefers discharge to home today 3. Will RTO 2 and 6 weeks PP, plans PP BTL and will be seen by MD's to schedule 4. Declines medications for at home 5. PP warning signs and when to call reviewed. (2) Lactating mother: Status: Acute Asessment and Plan: 1. Breast feeding is well established and they will follow up with pediatrics tomorrow. Discharge Plan Disposition Patient Disposition: Home Condition: Good Discharge Details Reason For Visit: Term Labor Admit Date/Time: 06/30/23 08:45 Admit Provider: Sarah Elise Attending Provider: Sarah Elise Primary Care Provider: Ros Monreal Hospital Course Hospital Course: Normal labor and vaginal delivery of live male over intact perineum. Normal PP course. Home Meds and New Rx's Prescriptions: Continued Classic 28 mg iron- 800 mcg tablet 1 tab PO DAILY ferrous sulfate [Elizabeth-Time] 325 mg (65 mg iron) tablet 325 mg PO DAILY omeprazole 20 mg Capsule,Delayed Release(Dr/Ec) 20 mg PO DAILY Discontinued aspirin [Adult Low Dose Aspirin] 81 mg tablet,delayed release (DR/EC) 81 mg PO DAILY Qty: 45 6RF Rx Instructions: Take 1 tablet daily alternating with 2 tablets daily every other day Discharge Instructions Instructions: Mastitis (GEN), Depression (GEN) Stand Alone Forms: Instructions, BC Post Vaginal Deliver Activity:: Activity as Tolerated Equipment/Supplies:: No Equipment Needed Diet:: As Tolerated Discharge Orders Discharge Orders: Discharge Order (Routine); Ordered 07/01/23 Ordered By: Sarah Elise OB:DS Summary Summary Vaginal Delivery Method: Spontaneaous Episiotomy Description: None Laceration Description: Perineal Laceration Extension: First Degree Contraception Discussed Contraception Discussed: Yes Contraceptive Plan: Tubal Ligation, Gilman Infant Gender-Baby A: Male (Reyes) weight: 8 lb 3.572 oz Disposition of Baby A: Home Status at Discharge Functional status at discharge: independent ambulation Overall status at discharge: patient is back to baseline Mental Status: mental status grossly normal Speech and Movement: speech and movement normal Mood: congruent mood Affect: normal affect Time Spent with Patient providing and/or coordinating discharge services: Less than 30 minutes Quality:SDOH Health Related Social Needs: No Data to Display Exam Physical Exam Vital signs: Temp Pulse Resp BP 98.1 F 68 18 106/58 L 07/01/23 07:45 07/01/23 07:45 07/01/23 07:45 07/01/23 07:45 Vital Signs Reviewed: Yes Constitutional Constitutional: no acute distress, obese and cooperative HEENT Exam HEENT Exam: Normal Neck Exam Neck Exam: Normal (normal visual inspection) Respiratory Exam Respiratory Exam: Normal Cardiovascular Exam Cardiovascular Exam: Normal Abdominal Exam Abdomen: Other (normal exam) Fundal Exam Fundus: Below Umbilicus and Firm Comment: small lochia noted. KH Rectal Exam Rectal Exam: Not Done Exam Perineum: Intact and Normal Extremities Exam Extremity Exam: Normal (denies calf tenderness) and Full ROM Back/Spine/Pelvis Exam Back Exam: Normal Skin Exam Skin Exam: Normal Neurological Exam Neurological Exam: Normal Psychiatric Exam Psychiatric Exam: Normal PFSH All Active Problems Lactating mother (Acute) care following vaginal delivery (Acute) BMI 33.0-33.9,adult (Acute) (Acute) Anxiety (Chronic) Depression (Chronic) Medical History Pelvic pain Elderly multigravida Polyhydramnios in second trimester, antepartum complication Echogenic intracardiac focus of fetus on ultrasound Anemia Normal labor GBS (group B Streptococcus carrier), +RV culture, currently Uterine size date discrepancy, antepartum Family history of valvular heart disease Thrombocytopenia (04/01/13) Dysuria during History of kidney stones Low lying placenta nos or without hemorrhage, second trimester TRACE (stress urinary incontinence, female) History of abnormal cervical Pap smear Macrocytic anemia (04/01/13) depression (11/19/13) Ovarian cyst Abnormal Pap smear of cervix 2017: Nl, no HPV done 2016: ASCUS/Neg HPV 2014: NIL/+HRHPV 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 Neg OLAF. Surgical History Status post ovarian cystectomy Laparoscopic, Ovarian Cystectomy (~06/2017) bilateral - hemorrhagic cyst Cervical Conization/LEEP Family History Grandmother Breast cancer and her sister had breast cancer in their 70s/80s. Pt's mom and her sister have no abnormalities. Mother Hypothyroid Father Kidney stones Social History Smoking/Tobacco Use Status: Current-Occasional Tobacco Type: cigarettes Smoking packs per day: 1 Smoking cigarettes per day: 20.0 Quit status: considering quitting Counseling given: provider counseling Smoking risk assessment performed?: Yes Alcohol Intake: current Alcohol Intake frequency: holidays/special occasions only Details: Has been working with PCP. She and partner both really want to quit Drug use: Never Sexually active: Yes Do you feel safe at home: Yes Do you feel safe in your relationship?: Yes Female Reproductive History Menstrual Age of Menarche: 17 control method: pills History History 6 Para 4 Hx # Term Pregnancies 3 Multiple births 0 Hx # Pregnancies 1 Ectopic pregnancies 0 AB induced 0 Hx Number of Living Children 4 AB spontaneous 1 Past Pregnancies Del. Date GA/Weeks # Preg Succ Route Wgt Sex Labor Lgth Anesthesia Location [facility] 07/27/06 [address] Petey FARIAS 02/04/[address] Greg FARIAS 02/24/12 [address] Greg FARIAS 04/28/13 [address] Petey FARIAS DS: Data Vitals/I&O Vitals and I&O: Vital Signs Temperature 98.1 F 07/01/23 07:45 Temperature Source Oral 07/01/23 07:45 Pulse 68 07/01/23 07:45 Pulse Rhythm Regular 07/01/23 07:45 Respiratory Rate 18 07/01/23 07:45 Blood Pressure 106/58 L 07/01/23 07:45 Blood Pressure Mean 74 07/01/23 07:45 Oxygen Delivery Method Room Air 06/30/23 09:00 Oxygen Flow Rate 0 06/30/23 09:00 Pain Level 2 07/01/23 07:37 Intake & Output 06/30/23 06/30/23 07/01/23 11:59 23:59 11:59 Intake Total 60 / 60 Output Total 800 / 800 Balance 60 / -740 -800 / -740 Weight 222 lb 15.996 oz Intake: IV 60 / 60 Output: Urine 800 / 800 Other: Urine Color Yellow
[2023-07-01] MEDS: Ibuprofen 600 MG TAB PO (14:10)
== END 2023-07-01 14:57 | disposition home or self-care (01) | DRG 807 ==
PROVIDERS: Admitting Provider Advanced Practice Midwife; PCP Nurse Practitioner Family; Visit Provider Advanced Practice Midwife
DX: O99.824 Streptococcus B carrier state complicating childbirth (principal); Z37.0 Single live birth; Z3A.39 39 weeks gestation of pregnancy; O99.344 Other mental disorders complicating childbirth; F41.8 Other specified anxiety disorders; O99.12 Other diseases of the blood and blood-forming organs and certain disorders involving the immune mechanism complicating childbirth; D69.6 Thrombocytopenia, unspecified; O99.02 Anemia complicating childbirth; D64.9 Anemia, unspecified; O40.3XX0 Polyhydramnios, third trimester, not applicable or unspecified; O99.334 Smoking (tobacco) complicating childbirth; F17.210 Nicotine dependence, cigarettes, uncomplicated; O70.0 First degree perineal laceration during delivery; O69.81X0 Labor and delivery complicated by cord around neck, without compression, not applicable or unspecified; O77.0 Labor and delivery complicated by meconium in amniotic fluid
CPT/HCPCS: 36415; 85027; 86850; 86900; 86901; J0690; J2590

== ENCOUNTER 2023-08-10 11:53 | Outpatient (REF) | payer MEDICAID, SELFPAY ==
--- NOTE | 2023-08-10 11:00 | PAPFT_PTH ---
PATIENT: Belia Rubio LOC: [facility] U#:[id number] AGE/SX: 37/F ROOM: RE08/10/[address]: Sarah Lomeli : 1985 BED: DIS: 08/10/2023 SPEC #: [id number] RECD: 08/10/23 13:38 STATUS: SHAUN REQ #: [id number] MIKHAIL: 08/10/23 11:[address]: Sarah Lomeli DEPT: ON LICENSE OF [facility] Cytology RECD BY: Belinda Silva ENTERED: 08/10/23 13:38 SP TYPE: PAPFT OTHR DR: Ros Monreal Tissues: 1 - CX/ENDOCX FOR PAP SMEARS Procedures: PAP THIN PREP/UVM Screening HPV DNA PROBE Comments: [id number] (HPV 16 & 18/45)
== END 2023-08-10 11:54 | disposition home or self-care (01) ==
LOC: LBN 11:53
PROVIDERS: PCP Nurse Practitioner Family; Visit Provider Advanced Practice Midwife
DX: Z12.4 Encounter for screening for malignant neoplasm of cervix (principal)
CPT/HCPCS: 88142; 87624

== ENCOUNTER 2023-09-10 03:27 | Outpatient (CLI) | payer MEDICAID, SELFPAY ==
[2023-09-10 10:30] LABS: HCT 37.9 % (36.0-46.0); MCH 32.3 pg (27.0-33.0); MCHC 34.3 % (32.0-36.0); MCV 94 fL (80-95); MPV 10.4 fL (8.0-11.0); Platelet Count 166 10^3/uL (130-400); RBC 4.02 10^6/uL (3.93-5.22); RDW 12.6 % (11.7-14.6); RDW-SD 43.8 fL; WBC 6.52 10^3/uL (4.4-10.8)
[2023-09-10 10:41] LABS: Anion Gap 10.5 mmol/L (3-11); BUN 15 mg/dL (7-18); CO2 25.5 mmol/L (21.0-32.0); CREATININE 1.2 mg/dL (0.55-1.02); Calcium 9.2 mg/dL (8.5-10.1); Chloride 106 mmol/L (98-107); Estimated GFR 60.54 (mL/min/1.73m2); Glucose 82 mg/dL (74-106); Potassium 4.2 mmol/L (3.5-5.1); Sodium 142 mmol/L (136-145)
== END 2023-09-10 03:28 | disposition home or self-care (01) ==
LOC: LBO 03:27
PROVIDERS: PCP Nurse Practitioner Family; Visit Provider Obstetrics & Gynecology Gynecology
DX: Z01.818 Encounter for other preprocedural examination (principal)
CPT/HCPCS: 36415; 80048; 85027; 86850; 86900; 86901; 86870

== ENCOUNTER 2023-09-12 07:14 | Day surgery (SDC) | payer MEDICAID, SELFPAY ==
[2023-09-12] VITALS (19 sets, daily range): BP systolic 94–108; BP diastolic 44–62; PULSE 52–73; RESP 15–26; TEMP 36.3–36.6; O2SAT 91–98; BMI 30.2
--- NOTE | 2023-09-12 07:54 | ANES.PREOP_ITS ---
General Info Date of Service Date Performed: 09/12/23 Height: 5 ft 8 in Weight: 90.3 kg Body Mass Index (BMI): 30.2 Surgical Procedure: Operation Date: 09/12/23 08:40 Proposed Procedure Side Surgeon p Salpingectomy Laparoscopic Bilateral Stacy Morrissey MD Meds Allergies and Home Medications Allergies Allergy/AdvReac Type Severity Reaction Status Date / Time adhesive Allergy Mild Red, itchy Verified 09/11/23 10:25 skin amoxicillin Allergy Itching Verified 09/11/23 10:25 Home Medication ?Medication ?Instructions ?Recorded omeprazole 20 mg capsule,delayed 20 mg PO DAILY 07/20/18 release vits no.126-ferrous fum 1 tab PO DAILY 11/07/22 28 mg iron-folic acid 800 mcg tablet (Classic ) Current Visit Medications: Current Medications Generic Name Dose Route Start Last Admin Trade Name Freq PRN Reason Stop Dose Admin Ringer's Solution 1,000 mls @ 125 mls/hr 09/12/23 06:00 IV 10/11/23 23:59 INFUSION RICARDO IV Miscellaneous Supplies 1 each 09/12/23 06:00 Iv Access IV 10/11/23 23:59 DIRECTED RICARDO Sodium Chloride 0 ml 09/12/23 06:00 Normal Saline Flush 10 Ml Syr IV 10/11/23 23:59 PRN PRN Sodium Chloride 0 ml 09/12/23 06:00 Normal Saline 10 Ml Vial IJ 10/11/23 23:59 DIRECTED PRN Sterile Water 0 ml 09/12/23 06:00 Water,Injection,Sterile 10 Ml Vial IJ 10/11/23 23:59 DIRECTED PRN PFSH Active Problems Active Problems: Problem Status Onset Code Lactating mother Acute Z39.1 care following vaginal delivery Acute Z39.2 BMI 33.0-33.9,adult Acute Z68.33 Acute Z34.90 Anxiety Chronic F41.9 Depression Chronic F32.9 Medical History Medical History (Updated 09/12/23 @ 08:08 by David Garcia CRNA) Sleep apnea Pelvic pain Elderly multigravida Polyhydramnios in second trimester, antepartum complication Echogenic intracardiac focus of fetus on ultrasound Anemia Normal labor GBS (group B Streptococcus carrier), +RV culture, currently Uterine size date discrepancy, antepartum Family history of valvular heart disease Thrombocytopenia (04/01/13) Dysuria during History of kidney stones Low lying placenta nos or without hemorrhage, second trimester TRACE (stress urinary incontinence, female) History of abnormal cervical Pap smear Macrocytic anemia (04/01/13) depression (11/19/13) Ovarian cyst Abnormal Pap smear of cervix 2017: Nl, no HPV done 2016: ASCUS/Neg HPV 2014: NIL/+HRHPV 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 Neg OLAF. Surgical History Surgical History Status post ovarian cystectomy Laparoscopic, Ovarian Cystectomy (~06/2017) bilateral - hemorrhagic cyst Cervical Conization/LEEP Tobacco Smoking/Tobacco Use Status: Former Tobacco Use Counseling given: provider counseling Alcohol Alcohol Intake: current Alcohol intake frequency: holidays/special occasions only Details: Has been working with PCP. She and partner both really want to quit Substance Use Substance use: Never Substance use type: does not use Prental History History 2 6 Para 5 Hx # Term Pregnancies 4 Multiple births 0 Hx # Pregnancies 1 Ectopic pregnancies 0 AB induced 0 Hx Number of Living Children 5 AB spontaneous 1 Past Pregnancies Del. Date GA/Weeks # Preg Succ Route Wgt Sex Labor Lgth Anesth esia Location [facility] 07/27/06 [address] Angelo [facility] 02/04/11 [address] Garza [facility] 02/24/12 [address] Garza [facility] 04/28/13 [address] Angelo [facility] 06/30/23 39 No Yes vaginal 3742.137 g Male Denzel quarles CNM Delivery Date: 06/30/23 Last Updated by: JOSÉ Liao Vital Signs and Lab Results Vital Signs Most Recent Vital Signs in EMR: Most Recent Vital Signs Temp Pulse Resp BP Pulse Ox 36.6 C 67 16 107/44 L 97 09/12/23 07:28 09/12/23 07:28 09/12/23 07:28 09/12/23 07:28 09/12/23 07:28 Lab Results 09/12/23 07:55 09/12/23 07:55 Blood Type / Crossmatch: 2 Antibody Screen POSITIVE 09/10/23 Complete Blood Count: 2 White Blood Count 3.98 10^3/uL (4.4-10.8) L 09/12/23 07:55 Red Blood Count 3.71 10^6/uL (3.93-5.22) L 09/12/23 07:55 Hemoglobin 12.1 g/dL (11.2-15.7) 09/12/23 07:55 Hematocrit 35.5 % (36.0-46.0) L 09/12/23 07:55 Platelet Count 136 10^3/uL (130-400) 09/12/23 07:55 Complete Metabolic Panel: 2 Sodium 142 mmol/L (136-145) 09/10/23 10:12 Potassium 4.2 mmol/L (3.5-5.1) 09/10/23 10:12 Chloride 106 mmol/L (98-107) 09/10/23 10:12 Carbon Dioxide 25.5 mmol/L (21.0-32.0) 09/10/23 10:12 BUN 15 mg/dL (7-18) 09/10/23 10:12 Creatinine 1.2 mg/dL (0.55-1.02) H 09/10/23 10:12 Est GFR (CKD-EPI 2020) 60.54 (mL/min/1.73m2) 09/10/23 10:12 Calcium 9.2 mg/dL (8.5-10.1) 09/10/23 10:12 Glucose 82 mg/dL (74-106) 09/10/23 10:12 Liver Function Panel: 2 No Data to Display Coagulation Panel: 2 No Data to Display Cardiac Panel: 2 No Data to Display Arterial Blood Gas: 2 No Data to Display Venous Blood Gas: 2 No Data to Display Pancreas Panel: 2 No Data to Display Thyroid Panel: 2 No Data to Display Infectious Disease: 2 No Data to Display Blood Cultures: 2 No Data to Display Toxicology Panel: 2 No Data to Display Panel: 2 No Data to Display Imaging and Studies Imaging and Studies Study information below may be from another EMR and interpreted by another provider. Please see original notes in EMR for more complete details. Pulmonary Function Summary: IMPRESSION Borderline mild obstructive airways disease, with no bronchodilator response. This may represent a normal variant. If underlying asthma diagnosis is in question, proceeding with methacholine challenge testing may prove to be useful, therefore clinical correlation recommended. 02/28/18 Anesthesia Assessment and Plan Anesthesia History Personal History: No History of Anesthesia Complications Family History: No Family History of Anesthesia Complications Exercise Tolerance Exercise Tolerance: Metabolic Equivalents>4 Pertinent Negatives Pertinent Negatives: No Symptoms of GERD, No Major Cardiovascular Symptoms or Complaints, No Major Pulmonary Symptoms or Complaints and No History of CVA/TIA Cardiac & Pulmonary Exam Cardiac Exam: Normal S1/S2 Heart Sounds Pulmonary Exam: Clear Bilateral Breath Sounds Implantable Cardiac Device Does patient have a Pacemaker or an ICD?: No Airway Exam Known Difficult Airway: No Mallampati Class: 2 Mouth Opening: Normal (> 3cm) Thyromental Distance: Greater than 3 cm Neck Range of Motion: Full ROM Neck Circumference: Normal Teeth Condition: Normal Dentition ASA Classification ASA Score: ASA 2 Emergency Case?: No NPO Status NPO Status: NPO Clears >2 hours, Solids >8 hours Status Status: Negative HCG Anesthesia Plan Resuscitation Status: Full Code Anesthesia Technique: General Anesthesia Airway Planned: Endotracheal Tube Monitors Used: Standard Monitors
[2023-09-12] MEDS: Lactated Ringers 1,000 ML 125 ML IV (08:11)
[2023-09-12 08:13] LABS: HCT 35.5 % (36.0-46.0); HGB 12.1 g/dL (11.2-15.7); MCH 32.6 pg (27.0-33.0); MCHC 34.1 % (32.0-36.0); MCV 96 fL (80-95); MPV 10.1 fL (8.0-11.0); Platelet Count 136 10^3/uL (130-400); RBC 3.71 10^6/uL (3.93-5.22); RDW 12.6 % (11.7-14.6); RDW-SD 44.5 fL; WBC 3.98 10^3/uL (4.4-10.8)
[2023-09-12 08:21] LABS: Chloride 108 mmol/L (98-107); Potassium 3.9 mmol/L (3.5-5.1); Sodium 143 mmol/L (136-145)
[2023-09-12 08:26] LABS: Anion Gap 9.6 mmol/L (3-11); CO2 25.4 mmol/L (21.0-32.0)
[2023-09-12 08:45] LABS: HCG Qual (Serum) Negative
--- NOTE | 2023-09-12 09:31 | FALL_PTH ---
PATIENT: Belia Rubio LOC: [facility] U#:[id number] AGE/SX: 37/F ROOM: RE09/12/[address]: Stacy Morrissey : 1985 BED: DIS: 09/12/2023 SPEC #: [id number] RECD: 09/12/23 12:47 STATUS: SHAUN REAura #: [id number] MIKHAIL: 09/12/23 09:[address]: Stacy Morrissey DEPT: Surgical Specimen RECD BY: Belinda Silva ENTERED: 09/12/23 12:48 SP TYPE: Fall OTHR DR: Ros Monreal Tissues: 1 - FALLOPIAN TUBE (STERILIZATION) 2 - FALLOPIAN TUBE (STERILIZATION) Procedures: GROSS AND MICRO LEVEL 2 Comments: [id number]
[2023-09-12] MEDS: Bupivacaine 0.25% Pres-Free 30 ML VIAL (09:39)
--- NOTE | 2023-09-12 10:11 | PDOC.DSDIS_ITS ---
Date of service: 09/12/23 Time of Service: 10:11 Discharge Plan Disposition Patient Disposition: Home Condition: Fair Discharge Details Reason For Visit: permanent sterilization Attending Provider: Stacy Morrissey Primary Care Provider: Ros Monreal Home Meds and New Rx's Prescriptions: No Action Classic 28 mg iron- 800 mcg tablet 1 tab PO DAILY oxycodone-acetaminophen [Percocet] 5-325 mg tablet 1 tab PO Q6H MDD 4 PRN (Reason: pain) Qty: 5 0RF omeprazole 20 mg Capsule,Delayed Release(Dr/Ec) 20 mg PO DAILY Discharge Instructions Additional Instructions: Keep your post op visit with Dr. Morrissey in 2-3 weeks. You have skin glue over your incisions. It can remain in place for 2 weeks. You can remove it at that time or Dr. Morrissey can remove it for you at the time of your postop visit. A prescription for Percocet has been called into your pharmacy. One tablet every 6 hours as needed for pain. You can take it with the Ibuprofen or alternate it with Ibuprofen. Stand Alone Forms: Anesthesia Discharge Inst., DSU Post Molded Goods Operator SurgeryW/Madhavi Canales (DSU) Activity:: Activity as Tolerated Remove Dressings/Wound Care:: Do Not Remove Shower/Bathe:: 24 hours Diet:: As Tolerated Discharge Orders Discharge Orders: Discharge Order (Routine); Ordered 09/12/23 Ordered By: Stacy Morrissey
--- NOTE | 2023-09-12 10:40 | W.PM.OP ---
Date of service: 09/12/23 Time of Service: 10:40 Operative Note Operative Note DATE OF PROCEDURE: 09/12/23 PRE-OP DIAGNOSIS: multiparity, desires permanent sterilization POST-OP DIAGNOSIS: same PROCEDURE: Laparoscopic bilateral salpingectomy SURGEON: Stacy Morrissey ASSISTING SURGEON: Allison Dejesus Refer to Anesthesia Record ESTIMATED BLOOD LOSS: 0 PATHOLOGY: other (bilateral fallopian tubes to pathology) COMPLICATIONS: None Patient was transported to: PACU Patient's condition: stable Indications: 37yo female who had requested a permanent sterilization during her course. She signed a Federal Sterilization Request during her and was counseled to alternatives to permanent sterilization. Findings: Pt menstruating. Nl upper abdomen. Nl adnexa and uterus. Procedure Description: Patient was taken to the operating room where she was placed in the dorsal supine position and endotracheal anesthesia was administered without difficulty. SCDs were in place. A surgical timeout was performed. She was prepped and draped in the usual sterile fashion. The umbilical fold was infiltrated with 0.25% Marcaine without epinephrine and 12 mm vertical skin incision was made in the umbilicus. Through this incision a varies needle connected to carbon dioxide gas was inserted into the abdomen and intra-abdominal placement confirmed by drop in the intra-abdominal pressure. Once a pneumoperitoneum was established a 12 mm Visiport trocar was introduced into the abdomen under direct visualization. The patient was then placed in Trendelenburg and 2 sites on the abdomen approximately 6 cm diagonal to the right of and left of the umbilical incision were transilluminated the skin infiltrated with 0.25% Marcaine incised with a scalpel and underd irect visualization two 5 mm ports were placed in the right and left lower quadrants respectively. The abdomen was inspected with the above-noted findings. The left fallopian tube located and followed out to its fimbriated end and a LigaSure electrocautery device was used to clamp cauterize and transect the fimbria from the left mesosalpinx to the level of the left uterine cornua. The left fallopian tube was then delivered through the 10 mm umbilical port and passed off of the operative field. A similar technique was carried out on the right fallopian tube without difficulty. The right fallopian tube was then delivered through the umbilical port. Both fallopian tube pedicles were inspected and noted to be hemostatic. Under direct visualization the two 5 mm ports were removed, pneumoperitoneum reduced, and the umbilical port removed. The fascia of the umbilical port site was reapproximated with interrupted suture of 0 Vicryl. The skin of all trocar sites was reapproximated with 4-0 Monocryl and covered with dry sterile dressings. The patient was awakened extubated and transported to recovery area in stable condition. All sponge lap needle counts are correct x2.
--- NOTE | 2023-09-12 10:55 | W.ANESPOSTOP ---
Postoperative Evaluation Date, Time and Location Date Performed: 09/12/23 Time Performed: 10:55 Patient Location: Day Surgery Unit Vital Signs Most Recent Imported Vital Signs: Most Recent Vital Signs Temp Pulse Resp BP Pulse Ox 36.4 C L 52 L 16 101/62 94 09/12/23 10:43 09/12/23 10:43 09/12/23 10:43 09/12/23 10:43 09/12/23 10:43 Pain Score Most Recent Pain Score: Most Recent Pain Score Pain Level 4 09/12/23 10:22 Assessment Mental Status: Awake (Alert & Oriented to Patient Baseline) Airway and Respiratory Function: Patent airway with normal (patient baseline) respiratory exam Cardiovascular Function: Hemodynamically Stable Hydration Status: Adequately Hydrated Nausea & Vomiting: No Nausea or Vomiting Pain: Pain is tolerable per patient Peripheral Nerve Block: Patient did not receive a nerve block
== END 2023-09-12 11:36 | disposition home or self-care (01) ==
PROVIDERS: PCP Nurse Practitioner Family; Visit Provider Obstetrics & Gynecology Gynecology
PROC: (CPT 58661; principal; 2023-09-12 08:30)
DX: Z30.2 Encounter for sterilization (principal); D64.9 Anemia, unspecified; D69.6 Thrombocytopenia, unspecified
CPT/HCPCS: 58661; 36415; 80051; 85027; 84703; 86870; 86880; 86900; 88302; J0665; J1100; J1885; J2001; J2250; J2405; J2704

== ENCOUNTER 2023-10-02 13:20 | Outpatient (REF) | payer MEDICAID, SELFPAY | END 2023-10-02 13:21 | disposition home or self-care (01) | LOC: LBN 13:20 | PROVIDERS: PCP Nurse Practitioner Family; Visit Provider Obstetrics & Gynecology | DX: N39.0 Urinary tract infection, site not specified (principal); R35.0 Frequency of micturition | CPT/HCPCS: 87077; 87086; 87186 ==

== ENCOUNTER 2023-12-25 21:48 | Outpatient (REF) | payer MEDICAID, SELFPAY | END 2023-12-25 21:49 | disposition home or self-care (01) | LOC: LBN 21:48 | PROVIDERS: PCP Nurse Practitioner Family; Visit Provider Physician Assistant | DX: N39.0 Urinary tract infection, site not specified (principal); R82.89 Other abnormal findings on cytological and histological examination of urine | CPT/HCPCS: 87086 ==

== ENCOUNTER 2024-01-02 20:07 | Outpatient (REF) | payer MEDICAID, SELFPAY ==
[2024-01-02 20:53] LABS: Bilirubin Negative (Negative); Blood Negative (Negative); Clarity Clear (Clear); Glucose Negative (Negative); Ketones Negative (Negative); Leukocyte Esterase Negative (Negative); Nitrite Negative (Negative); Specific Gravity 1.015 (1.005-1.025); Urobilinogen 0.2 mg/dL (Up to 0.2); pH 5.5 (5-8)
== END 2024-01-02 20:08 | disposition home or self-care (01) ==
LOC: LBN 20:07
PROVIDERS: PCP Nurse Practitioner Family; Visit Provider Physician Assistant
DX: R35.0 Frequency of micturition (principal); R39.9 Unspecified symptoms and signs involving the genitourinary system; N39.0 Urinary tract infection, site not specified; R39.15 Urgency of urination
CPT/HCPCS: 81003; 87480; 87510; 87660

== ENCOUNTER 2024-06-19 01:25 | Outpatient (CLI) | payer MEDICAID, SELFPAY ==
--- NOTE | 2024-06-19 07:30 | DI.US_ITS ---
Exam(s) US BREAST RT COMPLETE MAMMO DIAGNOSTIC BI EXAM: MAMMO DIAGNOSTIC BI and U/S breast RT complete CLINICAL HISTORY: Right breast pain,N64.4. TECHNIQUE: Craniocaudal and mediolateral oblique Full Field Digital Mammography views with Computer Aided Diagnosis followed by Tomosynthesis and right breast ultrasound. COMPARISON: This is a baseline examination. There are no priors for comparison. FINDINGS: Mammography/Tomosynthesis: Masses/Architectural Distortion: No suspicious masses or areas of architectural distortion are presen t. Microcalcifictions: No suspicious pleomorphic-type are seen. Skin Thickening/Nipple Retraction: None. Complete right breast US: Echotexture: Normal appearance of the glandular tissue. Shadowing: No suspicious foci. Cyst: There are multiple cysts seen throughout the right breast. The largest is at the 9 o'clock pos ition of the right breast 3 cm from the nipple and measures 5 mm. Solid lesions: There is a hypoechoic area at the santiago o'clock position 3 cm from the nipple in the r ight breast. This may represent normal fibroglandular tissue. Follow-up examination in 6 months is recommended for re-evaluation. Ductal dilation: None. IMPRESSION: 1. No definite evidence for malignancy is seen at this time. 2. A six-month follow-up right breast ultrasound is requested for re-evaluation. 3. The findings were discussed with the patient on the date of the examination. BI-RADS Category 3 - 6 month - Probably Benign Finding: Recommend follow-up imaging in 6 months Breast Density - Category C - Heterogeneously dense Breast density Category C or D implies that the patient has dense breast tissue. Dense breast tissue can make it harder to find cancer on a mammogram. Dense breast tissue is also associated with an incr eased risk of breast cancer. This information about the result of the mammogram report was provided to the patient to raise their awareness. Use this report when you speak with the patient about their risks for breast cancer, which includes their family history. At that time, you may recommend additional screening tests (Ultrasoun d or MRI) as these tests may add significant information. A negative radiographic report should not delay biopsy if a dominant or clinically suspicious mass is present. Up to ten percent of cancers are not identified on mammography. A negative report may reinforce clinical impression. Adenosis and dense breasts may obscure an underlying neoplasm. False positive reports average 6 to 10%. Patient will receive a letter notifying them of these results.
== END 2024-06-19 01:45 ==
LOC: DI 01:25
PROVIDERS: PCP Nurse Practitioner Family; Visit Provider Obstetrics & Gynecology
DX: N64.4 Mastodynia (principal); Z12.31 Encounter for screening mammogram for malignant neoplasm of breast; N63.15 Unspecified lump in the right breast, overlapping quadrants
CPT/HCPCS: 76642; 77062; 77066; G0279

== ENCOUNTER 2024-10-07 13:16 | Outpatient (REF) | payer MEDICAID, SELFPAY ==
[2024-10-07 16:14] LABS: HCT 38.3 % (36.0-46.0); HGB 13.0 g/dL (11.2-15.7); MCH 32.3 pg (27.0-33.0); MCHC 33.9 % (32.0-36.0); MCV 95 fL (80-95); MPV 11.3 fL (8.0-11.0); Platelet Count 157 10^3/uL (130-400); RBC 4.03 10^6/uL (3.93-5.22); RDW 12.7 % (11.7-14.6); RDW-SD 44.2 fL; WBC 5.86 10^3/uL (4.4-10.8)
[2024-10-07 16:41] LABS: Iron 110 ug/dL (50-170); Total Iron Binding Capacity 292 ug/dL (250-450); Transferrin Sat 38 % (15-50)
[2024-10-07 16:53] LABS: Calculated LDL 120 mg/dL (<100); Cholesterol 190 mg/dL (<200); Ferritin 42 ng/mL (8-252); HDL Cholesterol 38 mg/dL (>or=50); Triglyceride 163 mg/dL (<150)
== END 2024-10-07 13:17 | disposition home or self-care (01) ==
LOC: NCHCN 13:16
PROVIDERS: PCP Nurse Practitioner Family; Visit Provider Nurse Practitioner Family
DX: Z86.2 Personal history of diseases of the blood and blood-forming organs and certain disorders involving the immune mechanism (principal); Z00.00 Encounter for general adult medical examination without abnormal findings
CPT/HCPCS: 80061; 85027; 82728; 83540; 83550

== ENCOUNTER 2024-12-01 02:24 | Outpatient (CLI) | payer MEDICAID, SELFPAY ==
--- NOTE | 2024-12-01 06:45 | DI.US_ITS ---
Exam(s) US BREAST RT COMPLETE EXAM: US BREAST RT COMPLETE CLINICAL HISTORY: 6 m follow up, ABNL MAMMO RT BREAST,R92.8,RT BREAST CYSTS TECHNIQUE: Ultrasound right breast performed using standard protocol. COMPARISON: US US BREAST RT COMPLETE from 06/19/2024 FINDINGS: There again seen multiple right breast nodules. The largest is at 11 o'clock and measures 6 x 5 x 5 mm. This is unchanged compared to the prior examination. The nodules are anechoic and avascular. There are no new or suspicious nodules present. IMPRESSION: 1. No sonographically suspicious finding. 2. Stable multiple right breast nodules. 3. A six-month follow-up right breast ultrasound is recommended for re-evaluation. 4. The findings were discussed with the patient on the date of the examination. BI-RADS Category 3 - 6 month - Probably Benign Finding: Recommend follow-up imaging in 6 months DATA REPOSITORY:
== END 2024-12-01 02:44 ==
PROVIDERS: PCP Nurse Practitioner Family; Visit Provider Obstetrics & Gynecology
DX: R92.8 Other abnormal and inconclusive findings on diagnostic imaging of breast (principal); Z12.31 Encounter for screening mammogram for malignant neoplasm of breast
CPT/HCPCS: 76642